=== PATIENT | male | born 1985 | race American Indian/Alaskan Native ===

== ENCOUNTER 2019-11-17 01:21 | Emergency (ER) | payer OTHER, SELFPAY ==
[2019-11-17 01:25] VITALS: BP 183/111; PULSE 100; RESP 17; TEMP 37.3; O2SAT 98; BMI 35.2
[2019-11-17] MEDS: LIDO 1%/SOD BICARB 8.4% (10ML) 10 ML SYRINGE INJ (01:30)
--- NOTE | 2019-11-17 01:38 | ED.SKABFB ---
HPI - Skin/Abscess/Foreign Bdy General Chief complaint: Skin/Abscess/Foreign Body Stated complaint: possible spider bite on arm Time Seen by Provider: 11/17/19 01:24 Source: patient Mode of arrival: Family Vehicle Limitations: no limitations History of Present Illness HPI narrative: 34-year-old male here for evaluation of an infection to his left arm. Patient states that he has noticed it over the past 3 or 4 days. His brother was here in the emergency department earlier today with a similar infection on his right lower extremity. The patient states that he has never had an abscess that his knee drained in the past. No fevers. Did squeeze it whole was able to get a small amount of material out. He thinks that it is a spider bite. Related Data Previous Rx's Medication Instructions Recorded doxycycline hyclate 100 mg PO BID #13 tab 11/17/19 Allergies Allergy/AdvReac Type Severity Reaction Status Date / Time Penicillins Allergy Verified 11/17/19 01:30 Review of Systems Constitutional Constitutional: Denies fever(s) Musculoskeletal Musculoskeletal: Denies tingling Comments: Pain over the area of the swelling when he moves his left elbow Integumentary/Breasts Comments: Redness and swelling left for Neurologic Neurologic: Denies tingling Hematologic/Lymphatic Hematologic/Lymphatic: Denies easy bleeding and Denies easy bruising Patient History Medical History (Updated 11/17/19 @ 01:43 by Markel Chung DO) Patient denies medical problems (Acute) Social History Smoking Status: Current every day smoker Smoking Status: Current every day smoker alcohol intake frequency: 0-2 drinks per day Substance Use Type: does not use Exam Initial Vital Signs Initial Vital Signs: Vital Signs Temperature 99.1 F 11/17/19 01:25 Pulse Rate 100 H 11/17/19 01:25 Respiratory Rate 17 11/17/19 01:25 Blood Pressure 183/111 H 11/17/19 01:25 Pulse Oximetry 98 11/17/19 01:25 Const General: cooperative and comfortable Skin Other: Around area of redness with swelling to his left forearm just distal to the left elbow. Extrem Other: He can flex and extend left elbow without problems Psych Appearance: grossly normal and well kempt Procedures Abscess I/D I&D #1: Site: upper extremity Side (if applicable): left Local Anesthetic: lidocaine 1% and with bicarb Amount of anesthesia used (mL): 10 Technique: incised with #11 blade Irrigation: No Packing used?: none Complications: pain Course Orders Ordered: Discontinued Medications Lidocaine/Sodium Bicarbonate (Buffered Lidocaine 10 Ml Syr) 10 ml INJ NOW ONE Stop: 11/17/19 01:27 Last Admin: 11/17/19 01:30 Dose: 10 ml Documented by: TREY Vital Signs Vital signs: Vital Signs - 8 hr 11/17/19 01:25 Temperature 99.1 F Pulse Rate 100 H Respiratory Rate 17 Blood Pressure 183/111 H Pulse Oximetry 98 MDM - Skin/Abscess/Foreign Bdy MDM Narrative Medical decision making narrative: We were able to express a small amount of purulent material from the area. There is surrounding cellulitis of will treat him with antibiotics. Was given his 1st dose here will send home with prescription. He was given care instructions and return precautions. He expressed understanding and agreement. Discharge Plan Departure Patient Disposition: Home Clinical Impression: Abscess Cellulitis Qualifiers: Site of cellulitis: extremity Site of cellulitis of extremity: upper extremity Laterality: left Qualified Code(s): L03.114 - Cellulitis of left upper limb Instructions: DI for Incision and Drainage Activity Restrictions/Additional Instructions: You were given your 1st dose of antibiotics here in the ER. A prescription was electronically transmitted to safely for you to start taking tomorrow. Expect some oozing from the area. Change the bandage is needed. You can shower like normal in use soap and water. Return to the emergency department for any new or worsening symptoms Prescriptions: New doxycycline hyclate 100 mg tablet 100 mg PO BID Qty: 13 RF: 0 Referrals: Diamond Howell DO [Primary Care Provider] -
[2019-11-17] MEDS: DOXYCYCLINE HYCLATE 100 MG TABLET PO (01:43)
[2019-11-17 01:51] VITALS: BP 145/86; PULSE 90; RESP 17; O2SAT 98
== END 2019-11-17 01:51 | disposition home or self-care (01) ==
PROVIDERS: Emergency Provider Emergency Medicine; PCP Family Medicine
DX: L02.414 Cutaneous abscess of left upper limb (principal); L03.114 Cellulitis of left upper limb
CPT/HCPCS: 10060; 99283

== ENCOUNTER 2023-04-20 19:39 | Emergency (ER) | payer SELFPAY ==
[2023-04-20] VITALS (29 sets, daily range): BP systolic 142–192; BP diastolic 77–93; PULSE 84–102; RESP 16–24; TEMP 36.9; O2SAT 93–100; BMI 40.3
--- NOTE | 2023-04-20 19:43 | ED_ITS ---
HPI - General Adult General Chief complaint: Allergic Reaction Stated complaint: Anaphalaxis / Bee Time Seen by Provider: 04/20/23 19:42 History of Present Illness HPI narrative: 38M daily smoker without chronic medical history presents by EMS for evaluation of anaphylactic shock. The patient had been in his normal state of health and was stung on the dorsum of his left hand which immediately caused pain some swelling and redness, he states that he saw stinger which he was able to remove and soon thereafter developed significant redness and itching with trouble breathing and his throat started closing. EMS arrived and found him in significant respiratory distress, he was given an initial dose of epinephrine 0.3 and an IV was placed, he was briefly improved but then relatively quickly had a significant decompensation, blood pressure dropped into the 70s and he became profoundly short of breath again, he was subsequently given 2 more doses of epinephrine 0.5 mg IM as well as 50 mg of Benadryl through the IV in the ambulance [place]. He is feeling significant improvement on arrival with stable blood pressure, he is able to breathe without difficulty and states his throat is feeling much better though still scratchy. He denies any history of anaphylaxis and was in fact stung a few days ago with minimal if any symptoms. Related Data Previous Rx's Medication Instructions Recorded doxycycline hyclate 100 mg tablet 100 mg PO BID #13 tabs 11/17/19 epinephrine 0.3 mg/0.3 mL 0.3 mg (0.3 mL) IM Q5-15M PRN 04/21/23 injection, auto-injector (EpiPen anaphylaxis #2 ea 2-Adan) methylprednisolone 4 mg tablets in See Rx Instructions PO .COMPLEX 04/21/23 a dose pack (Medrol (Adan)) #21 ea Allergies Allergy/AdvReac Type Severity Reaction Status Date / Time Penicillins Allergy Verified 11/17/19 01:30 Review of Systems Review of Systems Narrative: GENERAL: See HPI HEENT: See HPI RESPIRATORY: See HPI CARDIOVASCULAR: Denies chest pain, palpitations, orthopnea, edema, GASTROINTESTINAL: Denies nausea, vomiting, abdominal pain, diarrhea, constipation, melena. : Denies dysuria, frequency, incontinence, hematuria, urinary retention. MUSCULOSKELETAL: denies weakness, joint pain, or bony pain SKIN: Denies rash, skin lesions, or other NEUROLOGIC: Denies weakness, headache, numbness, change in speech, confusion, seizures, incoordination. PSYCHIATRIC: No concerning psychosocial issues. 12 point review of systems is negative except for those stated above Patient History Medical History Patient denies medical problems Social History Smoking Status: Current every day smoker Smoking Status: Current every day smoker alcohol intake frequency: 0-2 drinks per day Substance Use Type: does not use Exam Narrative Exam Narrative: GENERAL: [38] year old patient appears stated age. Well-developed patient, in mild distress. HEAD: Atraumatic. Normocephalic. EYES: Pupils equal round and reactive. Extraocular motions intact. No scleral icterus. No injection or drainage. ENT: Nose without bleeding, purulent drainage. Throat without erythema, tonsillar hypertrophy or exudate. Airway patent. Slightly gravelly voice, airway controlled, controlling secretions NECK: Trachea midline. Non tender CARDIOVASCULAR: Regular rate and rhythm without murmurs, gallops, or rubs. RESPIRATORY: Clear to auscultation. Breath sounds equal bilaterally. No wheezes, rales, or rhonchi. GASTROINTESTINAL: Abdomen soft, non-tender, nondistended. EXTREMITIES: No edema or joint tenderness. BACK: Nontender without deformity or crepitance. No flank tenderness. NEURO: AOx3. SKIN: Some hives of his upper chest with erythema of anterior chest and upper extremities Initial Vital Signs Initial Vital Signs: Vital Signs Temperature 98.5 F 04/20/23 19:40 Pulse Rate 102 H 04/20/23 19:40 Respiratory Rate 20 04/20/23 19:40 Blood Pressure 151/85 H 04/20/23 19:40 Pulse Oximetry 100 04/20/23 19:40 Oxygen Delivery Method Room Air 04/20/23 19:40 Course Orders Ordered: Famotidine (Famotidine 20 Mg/2 Ml Vial) 20 mg IV NOW CHONG Last Admin: 04/20/23 19:52 Dose: 20 mg Documented By: DONITA Discontinued Medications Dexamethasone (Dexamethasone 10 Mg/Ml Vial) 10 mg IV NOW ONE Stop: 04/20/23 19:43 Last Admin: 04/20/23 19:54 Dose: 10 mg Documented By: DONITA Sodium Chloride (Normal Saline 0.9%) 1,000 mls @ 1,000 mls/hr IV BOLUS ONE Stop: 04/20/23 20:41 Last Infusion: 04/20/23 21:25 Dose: 0 mls/hr Documented By: Admin: 04/20/23 19:49 Dose: 1,000 mls/hr Documented By: DONITA Reevaluation(s) Reevaluation #1: Patient with complete resolution of symptoms after above-stated therapies Vital Signs Vital signs: Vital Signs - 8 hr 04/20/23 19:40 04/20/23 19:45 04/20/23 19:45 Temperature 98.5 F Pulse Rate 102 H 100 H Respiratory Rate 20 17 Blood Pressure 151/85 H 163/92 H Pulse Oximetry 100 94 Oxygen Delivery Method Room Air Room Air 04/20/23 19:50 04/20/23 19:50 04/20/23 19:56 Temperature Pulse Rate 96 H Respiratory Rate 24 Blood Pressure 153/85 H 142/78 H Pulse Oximetry 98 Oxygen Delivery Method Room Air 04/20/23 19:56 04/20/23 20:00 04/20/23 20:00 Temperature Pulse Rate 85 84 Respiratory Rate 22 21 Blood Pressure 148/83 H Pulse Oximetry 97 97 Oxygen Delivery Method Room Air Room Air 04/20/23 20:05 04/20/23 20:05 04/20/23 20:10 Temperature Pulse Rate 94 H Respiratory Rate 24 Blood Pressure 152/83 H 161/87 H Pulse Oximetry 98 Oxygen Delivery Method Room Air 04/20/23 20:10 04/20/23 20:15 04/20/23 20:15 Temperature Pulse Rate 96 H 97 H Respiratory Rate 22 24 Blood Pressure 175/93 H Pulse Oximetry 97 96 Oxygen Delivery Method Room Air 04/20/23 20:20 04/20/23 20:20 04/20/23 20:25 Temperature Pulse Rate 94 H Respiratory Rate 20 Blood Pressure 182/91 H 181/87 H Pulse Oximetry 97 Oxygen Delivery Method Room Air 04/20/23 20:25 04/20/23 20:30 04/20/23 20:30 Temperature Pulse Rate 94 H 96 H Respiratory Rate 21 20 Blood Pressure 183/87 H Pulse Oximetry 96 95 Oxygen Delivery Method Room Air Room Air 04/20/23 20:35 04/20/23 20:35 04/20/23 20:40 Temperature Pulse Rate 98 H Respiratory Rate 19 Blood Pressure 164/84 H 167/85 H Pulse Oximetry 95 Oxygen Delivery Method Room Air 04/20/23 20:40 04/20/23 20:45 04/20/23 20:45 Temperature Pulse Rate 98 H 102 H Respiratory Rate 19 23 Blood Pressure 174/87 H Pulse Oximetry 96 96 Oxygen Delivery Method Room Air Room Air 04/20/23 20:50 04/20/23 20:50 04/20/23 20:55 Temperature Pulse Rate 90 Respiratory Rate 22 Blood Pressure 143/83 H 148/86 H Pulse Oximetry 96 Oxygen Delivery Method Room Air 04/20/23 20:55 04/20/23 21:00 04/20/23 21:00 Temperature Pulse Rate 95 H 98 H Respiratory Rate 18 19 Blood Pressure 157/90 H Pulse Oximetry 96 97 Oxygen Delivery Method Room Air 04/20/23 21:05 04/20/23 21:05 04/20/23 21:10 Temperature Pulse Rate 97 H Respiratory Rate 19 Blood Pressure 161/93 H 144/85 H Pulse Oximetry 97 Oxygen Delivery Method Room Air 04/20/23 21:10 04/20/23 21:15 04/20/23 21:15 Temperature Pulse Rate 97 H 99 H Respiratory Rate 18 20 Blood Pressure 181/92 H Pulse Oximetry 95 97 Oxygen Delivery Method Room Air 04/20/23 21:20 04/20/23 21:20 04/20/23 21:22 Temperature Pulse Rate 98 H 101 H Respiratory Rate 18 21 Blood Pressure 192/89 H Pulse Oximetry 95 96 Oxygen Delivery Method Room Air Room Air 04/20/23 21:22 04/20/23 21:30 04/20/23 21:40 Temperature Pulse Rate 97 H 95 H Respiratory Rate 17 19 Blood Pressure 173/77 H Pulse Oximetry 93 Oxygen Delivery Method 04/20/23 21:40 04/20/23 22:00 04/20/23 22:00 Temperature Pulse Rate 97 H Respiratory Rate 16 Blood Pressure 172/87 H 174/92 H Pulse Oximetry Oxygen Delivery Method 04/20/23 22:30 04/20/23 22:34 04/20/23 22:34 Temperature Pulse Rate 97 H 96 H Respiratory Rate 21 21 Blood Pressure 179/88 H Pulse Oximetry 96 97 Oxygen Delivery Method Room Air Room Air 04/20/23 23:00 04/20/23 23:00 04/20/23 23:30 Temperature Pulse Rate 95 H Respiratory Rate 18 Blood Pressure 161/88 H 164/84 H Pulse Oximetry 94 Oxygen Delivery Method Room Air 04/20/23 23:30 04/21/23 00:00 04/21/23 00:00 Temperature Pulse Rate 94 H 85 Respiratory Rate 16 Blood Pressure 162/91 H Pulse Oximetry 94 94 Oxygen Delivery Method Room Air 04/21/23 00:30 04/21/23 00:30 Temperature Pulse Rate 88 Respiratory Rate 17 Blood Pressure 151/88 H Pulse Oximetry 95 Oxygen Delivery Method Room Air Medical Decision Making MDM Narrative Medical decision making narrative: [38] year old patient presents with anaphylactic shock from bee sting Prior Charts reviewed in our EMR Primary Historian: patient Treatments: See above Response to Therapy: Complete resolution symptoms Patient's symptoms improved over duration of stay with above-stated therapies. Observed for 6 hours with no return of symptoms Findings and discharge diagnosis discussed with patient/family followed by verbalization of understanding Return precautions discussed with patient/family whom verbalize understanding of diagnosis and plan Discharge Plan Departure Patient Disposition: Home Clinical Impression: Anaphylactic shock Instructions: DI for Anaphylaxis Activity Restrictions/Additional Instructions: *You have been diagnosed with [allergic reaction] *What to do: *Please continue to take your regular medications as directed. [x ] New medication prescriptions sent to your pharmacy: [ [facility]] [ ] New medication written as a paper prescription [ ] No new medications given *Please consider the routine use of over the counter antihistamines over the next few days 1. H1 blockers: Benadryl (Diphenhydramine), Zyrtec (Cetirizine), Marce (Fexofenadine) or Claritin (Loratadine) along with, 2. H2 blockers: Famotidine or Cimetidine *If you can please avoid what triggered your reaction today *Please follow up with your primary care provider in 2-3 days, call for an appointment. Let them know you were seen in the Emergency Department and that we ask that you be seen in follow up. We will electronically transmit a record of today's note if your PCP is in our system *If you do not have a primary care provider please contact the [facility] Resource line at [phone]. They will ask some questions about your medical history and help get you set up with a doctor in the community. *Return to Emergency Department if you should have any new, worsening or concerning symptoms, such as swelling of tongue, throat, trouble breathing, or other concerning symptoms Prescriptions: New epinephrine [EpiPen 2-Adan] 0.3 mg/0.3 mL auto-injector 0.3 mg IM Q5-15M PRN (Reason: anaphylaxis) Qty: 2 0RF Rx Instructions: do not exceed 3 doses per episode methylprednisolone [Medrol (Adan)] 4 mg tablets,dose pack See Rx Instructions .ROUTE .COMPLEX Qty: 21 0RF Rx Instructions: orally per package directions No Action doxycycline hyclate 100 mg tablet 100 mg PO BID Qty: 13 0RF Referrals: Diamond Howell DO [Primary Care Provider] - Stand Alone Forms: Patient Portal/API
[2023-04-20] MEDS: SODIUM CHLORIDE 0.9% 1,000 ML 1000 ML IV (19:49)
[2023-04-20] MEDS: FAMOTIDINE 20 MG/2 ML VIAL IV (19:52)
[2023-04-20] MEDS: DEXAMETHASONE 10 MG/ML VIAL IV (19:54)
[2023-04-21] VITALS: BP 162/91; PULSE 85; O2SAT 94
[2023-04-21 00:30] VITALS: BP 151/88; PULSE 88; RESP 17; O2SAT 95
[2023-04-21 01:00] VITALS: BP 140/67; PULSE 88; RESP 17; O2SAT 96
[2023-04-21 01:30] VITALS: BP 155/77; PULSE 83; RESP 17; O2SAT 95
== END 2023-04-21 02:00 | disposition home or self-care (01) ==
PROVIDERS: Emergency Provider Emergency Medicine; PCP Family Medicine
DX: T63.441A Toxic effect of venom of bees, accidental (unintentional), initial encounter (principal); T78.2XXA Anaphylactic shock, unspecified, initial encounter
CPT/HCPCS: 96361; 96374; 96375; 99283; 99284; J1100

== ENCOUNTER 2024-06-22 11:24 | Inpatient (IN) | payer OTHER, MEDICAID, SELFPAY ==
[2024-06-22] VITALS (9 sets, daily range): BP systolic 121–146; BP diastolic 67–86; PULSE 97–106; RESP 18–25; TEMP 36.7–37.2; O2SAT 93–98; BMI 34.2; BMI 35.2
--- NOTE | 2024-06-22 11:46 | DI.RAD.S_ITS ---
PROCEDURE: XR CHEST 1V INDICATIONS: suspected sepsis TECHNIQUE: One view of the chest was acquired. COMPARISON: None. FINDINGS: Surgical changes and devices: None. Lungs and pleura: Lungs are clear. No pleural effusions or pneumothorax. Mediastinum: Mediastinal contours appear normal. Heart size is normal. Bones and chest wall: No suspicious bony lesions. Overlying soft tissues appear unremarkable. IMPRESSION: No acute cardiopulmonary abnormality is seen. Dictated by: Bertha Garcia MD, PhD on 06/22/2024 at 12:13 Approved by: Bertha Garcia MD, PhD on 06/22/2024 at 12:14
--- NOTE | 2024-06-22 11:58 | EKG_ITS ---
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
--- NOTE | 2024-06-22 12:11 | ED_ITS ---
HPI - Wound/Laceration General Chief Complaint: Wound/Laceration Stated Complaint: L arm infection, swelling Time Seen by Provider: 06/22/24 11:59 Source: patient Mode of arrival: Ambulatory Limitations: no limitations History of Present Illness HPI narrative: Patient is a 39-year-old male who is here for an evaluation of an infection to his left elbow. He states that a couple days ago he noticed that there was a ?palumbo? over the area. He stated that his girlfriend tried to pop it. Since that time he was had increase in swelling and redness and drainage to the area. No fevers. Swelling that is now extending down to his hand. He has had infections like this in the past that have needed drainage. Related Data Previous Rx's Medication Instructions Recorded doxycycline hyclate 100 mg tablet 100 mg PO BID #13 tabs 11/17/19 epinephrine 0.3 mg/0.3 mL 0.3 mg (0.3 mL) IM Q5-15M PRN 04/21/23 injection, auto-injector (EpiPen anaphylaxis #2 ea 2-Adan) methylprednisolone 4 mg tablets in See Rx Instructions PO .COMPLEX 04/21/23 a dose pack (Medrol (Adan)) #21 ea Allergies Allergy/AdvReac Type Severity Reaction Status Date / Time Penicillins Allergy Verified 11/17/19 01:30 Review of Systems Review of Systems ROS Unobtainable: All systems reviewed & are unremarkable except as noted in HPI and below Patient History Medical History Patient denies medical problems Social History Smoking Status: Current every day smoker Smoking Status: Current every day smoker tobacco type: vaping alcohol intake frequency: 0-2 drinks per day Substance Use Type: methamphetamine Exam Initial Vital Signs Initial Vital Signs: Vital Signs Temperature 99.0 F 06/22/24 11:40 Pulse Rate 105 H 06/22/24 11:40 Respiratory Rate 20 06/22/24 11:40 Blood Pressure 146/86 H 06/22/24 11:40 Pulse Oximetry 97 06/22/24 11:40 Oxygen Delivery Method Room Air 06/22/24 11:40 HENMT Head: normal to inspection and normocephalic Skin Other: Patient with an extensive area of cellulitis and abscess to the lateral aspect of his left arm at the area of the elbow. There is area of fluctuance and induration in this area and drainage. Neuro Sensory Exam: no sensory deficits noted Extrem Other: Swelling to the left elbow and left forearm. Procedures Abscess I/D I&D #1: Site: upper extremity Side (if applicable): left Local Anesthetic: lidocaine 1% Amount of anesthesia used (mL): 5 Technique: incised with #11 blade Irrigation: No Packing used?: none Complications: pain Course Orders Ordered: ED Orders 06/22/24 11:42 Wound Culture and Gram Stain Stat 06/22/24 11:45 Consult to [employer]AX PATTERN ASSEMBLER - Roving Can Tender Stat 06/22/24 11:46 XR chest 1V Stat EKG-12 Lead Stat RT Consult Eval and Treat NOW 06/22/24 12:10 Complete Blood Count AUTO DIFF Stat Comprehensive Metabolic Panel Stat Lactate (Lactic Acid) Stat Lipase Stat PTT Partial Thromboplastin Dave Stat Procalcitonin Stat Prothrombin Time INR Stat 06/22/24 12:30 Blood Culture Stat Vancomycin HCl (Vancomycin) 1,000 mg in 200 mls @ 200 mls/hr IV NOW ONE Stop: 06/22/24 13:14 Ondansetron HCl (Ondansetron 4 Mg/2 Ml Inj) 4 mg IV NOW PRN PRN Reason: Nausea And Vomiting Discontinued Medications Ceftriaxone Sodium 1,000 mg/ (Sodium Chloride) 100 mls @ 200 mls/hr IV NOW ONE Stop: 06/22/24 12:16 Last Admin: 06/22/24 12:36 Dose: 200 mls/hr Documented By: AMBER Vital Signs Vital signs: Vital Signs - 8 hr 06/22/24 11:40 06/22/24 11:50 06/22/24 11:54 Temperature 99.0 F Pulse Rate 105 H 100 H Respiratory Rate 20 Blood Pressure 146/86 H 132/69 Pulse Oximetry 97 Oxygen Delivery Method Room Air 06/22/24 11:54 06/22/24 12:00 06/22/24 12:00 Temperature Pulse Rate 100 H 100 H Respiratory Rate 20 24 Blood Pressure 127/67 Pulse Oximetry 98 96 Oxygen Delivery Method MDM - Wound/Laceration Lab Data Attestation: I reviewed the patient's lab results. 06/22/24 12:10 06/22/24 12:10 Labs: Lab Results 06/22/24 Range/Units 12:10 WBC 27.0 H (4.5-11.0) X10^3/uL RBC 4.73 (4.5-5.9) X10^6/uL Hgb 14.2 (13.5-17.5) g/dL Hct 41.6 (41-53) % MCV 88.0 (80-100) fL MCH 30.0 (26-34) PG MCHC 34.0 (30-36) % RDW 13.5 (11.6-14.8) % Plt Count 547 H (150-400) X10^3/uL Neut % (Auto) Not Reportable Lymph % (Auto) Not Reportable [place] % (Auto) Not Reportable Eos % (Auto) Not Reportable Baso % (Auto) Not Reportable Lymph # (Auto) Not Reportable [place] # (Auto) Not Reportable Baso # (Auto) Not Reportable PT 12.6 H (9.4-12.5) SECONDS INR 1.1 (0.9-1.3) APTT 32 (25.1-36.5) SECONDS Sodium 136 L (137-145) mmol/L Potassium 4.3 (3.4-5.1) mmol/L Chloride 100 (98-107) mmol/L Carbon Dioxide 30 (22-32) mmol/L BUN 11 (9-20) mg/dL Creatinine 0.93 (0.66-1.25) mg/dL Estimated GFR > 60 (>60) mL/min BUN/Creatinine Ratio 11.8 (6-22) Glucose 105 H (70-100) mg/dL Lactate 0.7 (0.7-2.1) mmol/L Calcium 9.0 (8.4-10.2) mg/dL Total Bilirubin 0.6 (0.2-1.3) mg/dL AST 23 (17-59) IU/L ALT 26 (<50) IU/L Alkaline Phosphatase 44 (38-126) U/L Total Protein 8.2 (6.3-8.2) g/dL Albumin 4.3 (3.5-5.0) g/dL Globulin 3.9 (1.7-4.1) g/dL Albumin/Globulin Ratio 1.1 (1.0-2.8) Lipase 80 (23-300) U/L Imaging Data Chest x-ray: Radiologist's Impression: PROCEDURE: XR CHEST 1V INDICATIONS: suspected sepsis TECHNIQUE: One view of the chest was acquired. COMPARISON: None. FINDINGS: Surgical changes and devices: None. Lungs and pleura: Lungs are clear. No pleural effusions or pneumothorax. Mediastinum: Mediastinal contours appear normal. Heart size is normal. Bones and chest wall: No suspicious bony lesions. Overlying soft tissues appear unremarkable. IMPRESSION: No acute cardiopulmonary abnormality is seen. ECG Data Attestation: I personally reviewed and interpreted this ECG as follows: Interpretation: Sinus rhythm Ventricular rate of 96 Normal axis Normal QRS LVH No ST T wave changes MDM Narrative Medical decision making narrative: Swelling and redness and abscess to the left arm. The abscess was drained here in the ER however he has a significant leukocytosis, tachycardic and tachypneic. Blood cultures were obtained. Wound culture obtained. He was given Rocephin and vancomycin. I do feel given his presentation that he would likely fail outpatient oral antibiotics. Recommended admission to the hospital. Discussed the case with Dr. Fontana hospitalist on-call who will admit. Discussed the need for admission with the patient who expressed understanding and agreement as well. Discharge Plan Departure Patient Disposition: Admitted As Inpatient Clinical Impression: Abscess, Cellulitis Admit Date/Time: 06/22/24 12:52
[2024-06-22 12:23] LABS: Add Manual Diff / Slide Review YES; Hematocrit 41.6 % (41-53); Hemoglobin 14.2 g/dL (13.5-17.5); Platelet Count 547 X10^3/uL (150-400); Red Blood Cell Count 4.73 X10^6/uL (4.5-5.9); Red Cell Distribution Width 13.5 % (11.6-14.8)
[2024-06-22 12:29] LABS: INR 1.1 (0.9-1.3); Prothrombin Time 12.6 SECONDS (9.4-12.5)
[2024-06-22 12:31] LABS: PTT Partial Thromboplastin Tim 32 SECONDS (25.1-36.5)
[2024-06-22 12:33] LABS: Lactate (Lactic Acid) 0.7 mmol/L (0.7-2.1)
[2024-06-22 12:34] LABS: Alanine Aminotransferase 26 IU/L (<50); Albumin 4.3 g/dL (3.5-5.0); Albumin Globulin Ratio 1.1 (1.0-2.8); Alkaline Phosphatase 44 U/L (38-126); Aspartate Aminotransferase 23 IU/L (17-59); BUN Creatinine Ratio 11.8 (6-22); Bilirubin Total 0.6 mg/dL (0.2-1.3); Blood Urea Nitrogen 11 mg/dL (9-20); Carbon Dioxide 30 mmol/L (22-32); Chloride 100 mmol/L (98-107); Estimated Glomerular Filt Rate > 60 mL/min (>60); Globulin 3.9 g/dL (1.7-4.1); Glucose 105 mg/dL (70-100); HEMOLYSIS < 15 (0-50); Lipase 80 U/L (23-300); Potassium 4.3 mmol/L (3.4-5.1); Sodium 136 mmol/L (137-145); Total Protein 8.2 g/dL (6.3-8.2)
[2024-06-22] MEDS: cefTRIAXone 1,000 MG in SODIUM CHLORIDE 0.9% 100 ML 200 MG IV (12:36)
[2024-06-22 12:59] LABS: Neutrophils Absolute Manual 22140 /uL (3000-5900); Platelet Estimate Increased on smear; RBC Morphology Normal Morphology; Total Cells Counted 100
--- NOTE | 2024-06-22 13:10 | P.HP_ITS ---
History of Present Illness History of Present Illness Chief complaint: L arm infection, swelling Narrative: The patient was a 39-year-old male who presented with left elbow swelling and redness. This developed as a palumbo or pimple which is girlfriend tried to help him pump several days ago. He was since developed progressive redness, and swelling of the elbow and forearm. He presented to the emergency department and was I and D with cultures sent. The patient has significant redness and swelling of his arm from just above the elbow to senior living down the forearm. He denies any difficulty moving his hand or numbness. No fevers, or chills. He was been fatigued. He was otherwise healthy and a BMI of 35. It was a significant leukocytosis with a WBC of 27. T99.0, HR 105. [facility] Medical History Patient denies medical problems Social History household members: spouse and family Smoking Status: Current every day smoker alcohol intake: never Meds Home Medications and Allergies Home Medications Medication Instructions Recorded Confirmed Type epinephrine 0.3 mg/0.3 mL 0.3 mg (0.3 mL) IM Q5-15M PRN 04/21/23 06/22/24 Rx injection, auto-injector (EpiPen anaphylaxis #2 ea 2-Adan) Allergies Allergy/AdvReac Type Severity Reaction Status Date / Time bee venom protein (honey bee) Allergy Severe Numbness Verified 06/22/24 14:15 Penicillins Allergy Verified 11/17/19 01:30 Review of Systems Review of Systems Narrative: All else reviewed and otherwise unremarkable except as noted in the history and physical. Exam Vital Signs (past 8 hours): - 06/22/24 11:40 06/22/24 11:50 06/22/24 11:54 Temperature 99.0 F Pulse Rate 105 H 100 H Respiratory Rate 20 Blood Pressure 146/86 H 132/69 Pulse Oximetry 97 Oxygen Delivery Method Room Air 06/22/24 11:54 06/22/24 12:00 06/22/24 12:00 Temperature Pulse Rate 100 H 100 H Respiratory Rate 20 24 Blood Pressure 127/67 Pulse Oximetry 98 96 Oxygen Delivery Method Oxygen Delivery Method Room Air Narrative Exam Narrative: NAD, alert and oriented, fluent speech, calm. Normocephalic skull, EOMI, anicteric sclera, symmetric pupils. Oropharynx unremarkable, no droop. Neck supple, midline trachea, no adenopathy. Lungs clear, normal rate and effort. Heart regular, no murmur gallop or rub. Abdomen is soft, non distended and non tender. Extremities are free of edema. Accept the left arm is swollen and red at the elbow down senior living through the forearm. He was normal range of motion of the elbow. He did have a 90 year the posterior aspect of the elbow and this is dressed. Skin is free of rash or lesions. Joints are not swollen or deformed. Judgment appears to be normal. Objective ECG Impression: Minimal voltage criteria for LVH, may be normal variant ( R in aVL ) Imaging Chest x-ray: Radiologist's impression: No acute cardiopulmonary abnormality is seen. Labs 06/22/24 12:10 06/22/24 12:10 Labs: Laboratory Results - last 24 hr 06/22/24 12:10 WBC 27.0 H RBC 4.73 Hgb 14.2 Hct 41.6 MCV 88.0 MCH 30.0 MCHC 34.0 RDW 13.5 Plt Count 547 H Neut % (Auto) Not Reportable Lymph % (Auto) Not Reportable [place] % (Auto) Not Reportable Eos % (Auto) Not Reportable Baso % (Auto) Not Reportable Lymph # (Auto) Not Reportable [place] # (Auto) Not Reportable Baso # (Auto) Not Reportable Total Counted 100 Seg Neutrophils % 81.0 H Band Neutrophils % 1.0 L Lymphocytes % (Manual) 7.0 L Monocytes % (Manual) 8.0 Eosinophils % (Manual) 2.0 Myelocytes % 1.0 H Neutrophils # (Manual) 57112 H Platelet Estimate Increased on smear RBC Morphology Normal morphology PT 12.6 H INR 1.1 APTT 32 Sodium 136 L Potassium 4.3 Chloride 100 Carbon Dioxide 30 BUN 11 Creatinine 0.93 Estimated GFR > 60 BUN/Creatinine Ratio 11.8 Glucose 105 H Lactate 0.7 Calcium 9.0 Total Bilirubin 0.6 AST 23 ALT 26 Alkaline Phosphatase 44 Total Protein 8.2 Albumin 4.3 Globulin 3.9 Albumin/Globulin Ratio 1.1 Lipase 80 Procalcitonin 0.060 Assessment & Plan Assessment & Plan narrative: 1. Left Elbow cellulitis and abscess, present on admission and active. 2. Significant leukocytosis, present on admission and active. 3. Obesity class 2 with a BMI of 35.3, present on admission and active. Plan: - Empiric antibiotics with ceftriaxone and vancomycin. - Follow cultures HECTOR is 06/24, anticipate a 2 midnight stay given significant degree of cellulitis. Inpatient status as supported. Full resuscitation. Time-Based Coding :: 35 min spent with patient and on the chart (including review of chart, obtaining history, exam, reviewing outside data, placing orders, documenting exam and treatment plan, and counseling patient) on 06/22. Quality MIPS - Admit I confirm the patient?s Advance Care Plan is present, Code status is documented, Surrogate decision maker is in patient?s record [If Yes, STOP here]: Yes MIPS - Meds 'Current medications' to include all prescriptions, [id number] products, herbals, cannabis/cannabidiol products, and vitamin/mineral/dietary (nutritional) supplements. I have utilized all available resources to obtain, update, or review the patient?s current medications. [If Yes, STOP here]: Yes
[2024-06-22] MEDS: VANCOMYCIN 1,000 MG/200 ML PIGGYBACK 200 MG IV (13:41)
[2024-06-22] MEDS: ACETAMINOPHEN 325 MG TABLET 650 MG PO (13:42)
--- NOTE | 2024-06-22 14:06 | CM.DANOTE ---
DCP Assessment Note: Pt is a 39yo male, resident of [place], is admitted for left arm infection and abscess. Pt has a trailer on [address] which he tries to stay away from due to heavy drug use in the area; pt has been staying in his vehicle in [place] with his fiance in an attempt to be away from that environment. Patient has children who stay with their grandparents during the week due to school. Pt's Primary Care Provider is Dr. Diamond Howell DO and insurance is [employer] and Medicaid. Reviewed chart and team rounds for pt's medical status and initial discharge needs. DCP met w/patient at bedside; introduced self and role. Patient was found in bed, alert and oriented, cooperative with assessment. Pt confirmed living situation and good support in [facility]. Patient was tearful when describing current living arrangement. Patient states he [facility] and even completed TAMIKO treatment at [facility] after [facility] of [place] [facility]. Patient is hopeful for a referral to a housing support program for himself and his family so he can stabilize and continue with plans of abstaining from methamphetamine use. Pt expressed preference in discharging with family when medically stable. Pt has no prior hx of SNF or home health. Plan: Pt to be admitted to acute care floor for IV abx and treatment of infection. Anticipating discharge to previous living conditions with housing support referral when medically cleared. CM team will follow closely for coordination of discharge plans. DEVON Williamson Discharge Planning/Care Management CM Discharge Assessment Start: 06/22/24 14:01 Freq: Status: Active Protocol: Document 06/22/24 14:02 (Rec: 06/22/24 14:06 [id number]) Discharge Planning Assessment Assigned Network And Threat Support Specialist LATONYA Gomes/Assigned Designee Name China Boo Contact Information [phone] Advance Directives? No History Provided By Patient,Medical Record Has Patient been admitted in last 30 No days? Prior Living Arrangements Homeless Comment Patient is currently living in their vehicle in [place]. Pt explained they have a trailer on [address] but has been trying to avoid that area due to heavy drug use. Household Members spouse,family Comment Patient's children live at pt' s in-law's house during the week as they still go to school in [place] [employer]. Type of transporation used prior to Drives own vehicle admit Independent with ADL's Yes Is patient alert and oriented? Yes Caregiver for Another Yes: Children, also has decreased mobilization due to hip fx Comment Hoping for assistance with being admitted at [facility] or other housing support program for himself and family. Barriers to Discharge No Discharge Plan Home Referrals Initiated Other Additional Comment [facility] Review Status In Process Please Provide Date Initial DC 06/22/24 Assessment Was Performed Next Review Type Continued Stay Review
--- NOTE | 2024-06-22 14:20 | PC.NURSE ---
Pt to room 216 via w/c by PROCESS AREA SUPERVISOR. Pt is awake, alert, and oriented x 3. Denies nausea, or shortness of breath. States pain to his left arm is tolerable-provided Tylenol for Pt comfort and elevated elbow on 2 pillows. IV vanco infusing. Pt declined to wear scd's at this time (states perhaps at night time), declined Heparin injection. Pt given snacks to eat. Pt oriented to room, call light, bed controls, and tv controls. Urinal placed next to void as needed. Requested Pt call for assistance as needed and to not get up without assistance while hooked to IV pump or feels unsteady on his feet. Pt denies falls and is steady on his feet.
[2024-06-22] MEDS: OXYCODONE IR 5 MG TABLET PO (20:31)
[2024-06-22] MEDS: VANCOMYCIN 1,500 MG/300 ML PIGGYBACK 200 MG IV (20:31)
[2024-06-23 03:19] LABS: Acinetobacter calcoa-baumannii Not Detected (Not Detect); Bacteroides fragilis Not Detected (Not Detect); Candida albicans Not Detected (Not Detect); Candida auris Not Detected (Not Detect); Candida glabrata Not Detected (Not Detect); Candida krusei Not Detected (Not Detect); Candida parapsilosis Not Detected (Not Detect); Candida tropicalis Not Detected (Not Detect); Cryptococcus neoformans/gatti Not Detected (Not Detect); Enterobacter cloacae complex Not Detected (Not Detect); Enterobacterales Not Detected (Not Detect); Enterococcus faecalis Not Detected (Not Detect); Enterococcus faecium Not Detected (Not Detect); Haemophilus influenzae Not Detected (Not Detect); Klebsiella aerogenes Not Detected (Not Detect); Listeria monocytogenes Not Detected (Not Detect); Neisseria meningitidis Not Detected (Not Detect); Proteus species Not Detected (Not Detect); Pseudomonas aeruginosa Not Detected (Not Detect); Salmonella species Not Detected (Not Detect); Serratia marcescens Not Detected (Not Detect); Staphylococcus epidermidis Not Detected (Not Detect); Staphylococcus lugdunensis Not Detected (Not Detect); Staphylococcus species Detected (Not Detect); Stenotrophomonas maltophilia Not Detected (Not Detect); Streptococcus agalactiae (Gr B Not Detected (Not Detect); Streptococcus pneumonia Not Detected (Not Detect); Streptococcus pyogenes (Gr A) Not Detected (Not Detect); Streptococcus species Not Detected (Not Detect); mecA/C and MREJ (MRSA) Resista Not Detected (Not Detect)
[2024-06-23] MEDS: OXYCODONE IR 5 MG TABLET PO ×2 (05:00→08:49)
[2024-06-23 05:35] LABS: Add Manual Diff / Slide Review NO; Basophils Absolute Auto 200 /uL (0-100); Basophils Percent Auto 0.7 % (0-2); Eosinophils Absolute Auto 800 /uL (0-450); Eosinophils Percent Auto 3.5 % (2-4); Hematocrit 40.2 % (41-53); Hemoglobin 13.5 g/dL (13.5-17.5); Lymphocytes Absolute Auto 1900 /uL (1100-4500); Lymphocytes Percent Auto 9.1 % (25-40); Mean Corpuscular HGB Conc 33.6 % (30-36); Mean Corpuscular Hemoglobin 29.6 PG (26-34); Monocytes Absolute Auto 2000 /uL (0-900); Monocytes Percent Auto 9.4 % (3-14); Neutrophils Absolute Auto 16400 /uL (1500-7000); Neutrophils Percent Auto 77.3 % (50-75); Platelet Count 515 X10^3/uL (150-400); Red Blood Cell Count 4.58 X10^6/uL (4.5-5.9); Red Cell Distribution Width 13.8 % (11.6-14.8); White Blood Cell Count 21.2 X10^3/uL (4.5-11.0)
[2024-06-23 06:00] VITALS: BP 121/83; PULSE 76; RESP 18; TEMP 36.7; O2SAT 95
--- NOTE | 2024-06-23 07:23 | PC.NURSE ---
Pt showered/changed this shift. Dressing changes @ 1200/0500. Dressed w/xeroform, gauze/medipore.
[2024-06-23 08:48] VITALS: BP 138/84; PULSE 84; RESP 14; TEMP 36.8; O2SAT 97
[2024-06-23] MEDS: VANCOMYCIN 1,500 MG/300 ML PIGGYBACK 200 MG IV ×2 (08:49→20:44)
[2024-06-23] MEDS: ACETAMINOPHEN 325 MG TABLET 650 MG PO ×2 (08:50→20:44)
[2024-06-23] MEDS: cefTRIAXone 1,000 MG in SODIUM CHLORIDE 0.9% 100 ML 200 MG IV (11:54)
[2024-06-23 12:00] VITALS: BP 125/71; PULSE 88; RESP 14; TEMP 36.4; O2SAT 98
--- NOTE | 2024-06-23 13:06 | DI.ECHO.S_ITS ---
[place] +---------+ Hospital : : [address] : : [place] : : [id number] : : Phone: [phone] Echocardiogram Report + + :Name: BETO BRUNO Study Date: 06/24/2024 Height: 68 in : :[facility] ReadingLocation: Weight: 232 lb : : Gender: Male BSA: 2.2 m2 : :: 1985 Age: 39 yrs BP: 143/90 mmHg: :Reason For Study: SEPSIS : :Ordering Physician: CARTER, : :KEATON Performed By: Nuno Willoughby : :Referring: KEATON MACHADO : + + Interpretation Summary The left ventricle is normal in size. Left ventricular systolic function is normal. The ejection fraction is estimated to be 55-60%. There are no obvious focal wall motion abnormalities noted but poor endocardial definition reduces the sensitivity for the detection of such. Diastolic parameters suggest a relaxation abnormality of the left ventricle, consistent with probable normal filling pressures. The right ventricle is normal in size and function. The left atrial size is normal. There is no significant valvular heart disease. The aortic root is normal size. Procedure: A two-dimensional transthoracic echocardiogram with color flow and Doppler was performed. The study quality was technically good. There is no prior echocardiogram noted for this patient. The patient was in normal sinus rhythm during the exam. Left Ventricle: The left ventricle is normal in size. Left ventricular wall thickness is mildly increased. There is no ventricular septal defect visualized. Left ventricular systolic function is normal. The ejection fraction is estimated to be 55-60%. There are no obvious focal wall motion abnormalities noted but poor endocardial definition reduces the sensitivity for the detection of such. Diastolic parameters suggest a relaxation abnormality of the left ventricle, consistent with probable normal filling pressures. Right Ventricle: The right ventricle is normal in size and function. Atria: The left atrial size is normal. Right atrial size is normal. There is no Doppler evidence for an atrial septal defect. Mitral Valve: The mitral valve is normal in structure and function. There is no mitral regurgitation noted. Aortic Valve: The aortic valve is trileaflet. The aortic valve opens well. No aortic regurgitation is present. Tricuspid Valve: The tricuspid valve is normal in structure and function. No tricuspid regurgitation. Pulmonic Valve: The pulmonic valve is normal in structure and function. There is no pulmonic valvular regurgitation. There is no significant valvular heart disease. Great Vessels: The aortic root is normal size. The dimensions of the ascending aorta are normal. The pulmonary artery is normal size. The IVC is of normal diameter and collapses greater than 50% with a sniff. This suggests a low right atrial pressure of 3 mm Hg. Pericardium/ Pleura There is no pericardial effusion. There is no pleural effusion. MMode/2D Measurements & Calculations LVIDd: 4.9 cm LVOT diam: 2.3 cm LVIDs: 3.6 cm Ao root diam: 3.0 cm FS: 26.3 % asc Aorta Diam: 3.4 cm EPSS: 0.98 cm IVSd: 1.1 cm LVPWd: 1.1 cm LV shelley. diameter/BSA (cm/m^2): 2.3 LV sys. diameter/BSA (cm/m^2): 1.7 LA A2 area: 20.4 cm2 RA long axis: 4.5 cm LA A4 area: 19.1 cm2 RA area: 12.5 cm2 LA length (vol): 6.1 cm RA vol: 29.2 ml LA vol: 54.6 ml RA : 13.4 ml/m2 LA vol index: 25.1 ml/m2 IVC diam: 1.9 cm RVD1 (basal): 3.9 cm RVD2 (mid): 3.5 cm TAPSE: 2.0 cm Doppler Measurements & Calculations Ao V2 max: 160.9 cm/sec LVOT Max Ramon: 102.2 cm/sec Ao V2 mean: 115.0 cm/sec LV V1 max P.2 mmHg Ao max P.4 mmHg LV V1 VTI: 18.1 cm Ao mean P.8 mmHg KATERINA(I,D): 2.9 cm2 Ao V2 VTI: 26.7 cm KATERINA(V,D): 2.8 cm2 sev ratio: 0.68 KATERINA indexed to BSA (cm^2/m^2): 1.3 MV E max ramon: 84.7 cm/sec PA V2 max: 91.3 cm/sec MV A max ramon: 103.4 cm/sec PA V2 mean: 51.9 cm/sec MV E/A: 0.82 PA mean P.4 mmHg Med Peak E' Ramon: 7.7 cm/sec PA pr(Accel): 51.6 mmHg E/E' med: 10.9 Lat Peak E' Ramon: 7.8 cm/sec E/E' lat: 10.8 E/e' average: 10.9 MV dec time: 0.23 sec SV(LVOT): 78.4 ml Reading Physician:10:31 AM
--- NOTE | 2024-06-23 16:20 | P.PN_ITS ---
Subjective Subjective Date Patient Seen: 06/23/24 Time Patient Seen: 12:45 Interval history: Narrative: The patient was a 39-year-old male who presented with left elbow swelling and redness. This developed as a palumbo or pimple which is girlfriend tried to help him pump several days ago. He was since developed progressive redness, and swelling of the elbow and forearm. He presented to the emergency department and was I and D with cultures sent. The patient has significant redness and swelling of his arm from just above the elbow to alf down the forearm. He denies any difficulty moving his hand or numbness. No fevers, or chills. He was been fatigued. He was otherwise healthy and a BMI of 35. It was a significant leukocytosis with a WBC of 27. T99.0, HR 105. Interval history: The patient reports feeling better. He continues to have purulent drainage from the left elbow. Exam Vital Signs (past 8 hours): - 06/23/24 08:48 06/23/24 12:00 Temperature 98.2 F 97.5 F L Pulse Rate 84 88 Respiratory Rate 14 14 Blood Pressure 138/84 125/71 Pulse Oximetry 97 98 Oxygen Flow Rate 0 0 Oxygen Delivery Method Room Air Oxygen Flow Rate 0 Narrative Exam Narrative: NAD, alert and oriented, fluent speech, calm. Oropharynx unremarkable, no droop. Neck supple, midline trachea, no adenopathy. Lungs clear, normal rate and effort. Heart regular, no murmur gallop or rub. Abdomen is soft, non distended and non tender. Extremities are free of edema. Left arm is swollen and red at the elbow down alf through the forearm, imprving, with expressible purulence from the incision site. He was normal range of motion of the elbow. Skin is otherwise free of rash or lesions. Joints are not swollen or deformed. Judgment appears to be normal. Objective Labs 06/23/24 04:51 06/22/24 12:10 Labs: Laboratory Results - last 24 hr 06/22/24 06/23/24 12:10 04:51 WBC 21.2 H RBC 4.58 Hgb 13.5 Hct 40.2 L MCV 88.0 MCH 29.6 MCHC 33.6 RDW 13.8 Plt Count 515 H Neut % (Auto) 77.3 H Lymph % (Auto) 9.1 L [place] % (Auto) 9.4 Eos % (Auto) 3.5 Baso % (Auto) 0.7 Neut # (Auto) 82707 H Lymph # (Auto) 1900 [place] # (Auto) 2000 H Eos # (Auto) 800 H Baso # (Auto) 200 H A.calcoaceticus-baumannii cmplx PCR Not detected Bacteroides fragilis Not detected Erendira albicans (PCR) Not detected Erendira auris (PCR) Not detected C. glabrata (PCR) Not detected C. krusei (PCR) Not detected C. parapsilosis (PCR) Not detected C. tropicalis (PCR) Not detected C. neoform/gattii (PCR) Not detected Enterobacterales (PCR) Not detected E. cloacae complex PCR Not detected Enterococc faecalis PCR Not detected Enterococc faecium PCR Not detected E. coli (PCR) Not detected H. influenzae (PCR) Not detected Klebsiella aerogenes (PCR) Not detected Klebsiella oxytoca PCR Not detected Klebsiella pneumoniae Not detected List. monocytogenes PCR Not detected N. meningitidis (PCR) Not detected Proteus species (PCR) Not detected Salmonella spp. (PCR) Not detected Serratia marcescens PCR Not detected Staphylococcus sp PCR Detected Staph aureus (PCR) Detected mecA/C & MREJ Resist Gene Not detected mecA/C-Methicil Resis Gene Not applicable mcr-1 Colistin Res Gene PCR Not applicable Staph epidermidis (PCR) Not detected Staph lugdunensis PCR Not detected S. maltophilia (PCR) Not detected Streptococcus sp PCR Not detected Group A Strep (PCR) Not detected Strep agalactiae (PCR) Not detected Strep pneumoniae (PCR) Not detected P. aeruginosa (PCR) Not detected Crystal/B-Vanco Res Genes Not applicable blaIMP Car res Gene PCR Not applicable KPC-Carbap Res Gene PCR Not applicable blaNDM Car Res Gene PCR Not applicable OXA-48 Carbapenem Resis Gene (PCR) Not applicable blaVIM Car Res Gene PCR Not applicable CTX-M Gene Resistance (PCR) Not applicable [facility] Medical History Patient denies medical problems Social History household members: spouse and family Smoking Status: Current every day smoker alcohol intake: never Assessment & Plan Assessment & Plan narrative: 1. Left elbow cellulitis and abscess, present on admission and active. 2. Significant leukocytosis, present on admission and active. 3. Staph aureus septicemia. Rule out endocarditis. Check echocardiogram. 3. Obesity class 2 with a BMI of 35.3, present on admission and active. Plan: - Empiric antibiotics with ceftriaxone and vancomycin. - Follow cultures - Echocardiogram - Consider PICC/home IV antibiotics HECTOR is 06/24, anticipate a 2 midnight stay given significant degree of cellulitis and sepsis. Inpatient status. Full resuscitation. Quality VTE Deep Vein Thrombosis/Pulmonary Embolism Present on Admission: No PROFEE Charge codes Subsequent inpatient/observation care: 51561
[2024-06-23 18:00] VITALS: BP 134/78; PULSE 94; RESP 15; TEMP 36.8; O2SAT 98
[2024-06-23 20:00] VITALS: BP 130/80; PULSE 99; RESP 16; TEMP 36.7; O2SAT 98
[2024-06-24 00:39] VITALS: BP 121/73; PULSE 88; RESP 16; TEMP 36.6; O2SAT 97
[2024-06-24 05:44] VITALS: BP 145/86; PULSE 78; RESP 16; TEMP 36.4; O2SAT 98
[2024-06-24 05:50] LABS: Add Manual Diff / Slide Review NO; Basophils Absolute Auto 100 /uL (0-100); Basophils Percent Auto 0.8 % (0-2); Eosinophils Absolute Auto 1000 /uL (0-450); Eosinophils Percent Auto 5.9 % (2-4); Hematocrit 43.1 % (41-53); Hemoglobin 14.7 g/dL (13.5-17.5); Lymphocytes Absolute Auto 2100 /uL (1100-4500); Lymphocytes Percent Auto 12.3 % (25-40); Mean Corpuscular Hemoglobin 29.9 PG (26-34); Mean Corpuscular Volume 87.9 fL (80-100); Monocytes Absolute Auto 1500 /uL (0-900); Monocytes Percent Auto 9.1 % (3-14); Neutrophils Absolute Auto 12200 /uL (1500-7000); Neutrophils Percent Auto 71.9 % (50-75); Platelet Count 577 X10^3/uL (150-400); Red Blood Cell Count 4.91 X10^6/uL (4.5-5.9); Red Cell Distribution Width 13.7 % (11.6-14.8); White Blood Cell Count 16.9 X10^3/uL (4.5-11.0)
[2024-06-24 06:03] LABS: C-Reactive Protein Quant 6.6 mg/dL (<1.0)
[2024-06-24 07:00] LABS: Erythrocyte Sedimentation Rate 48 MM/HR (0-15)
[2024-06-24 08:00] VITALS: BP 143/90; PULSE 85; RESP 16; TEMP 36.6; O2SAT 99
[2024-06-24 09:18] LABS: Vancomycin Trough 8.8 ug/mL (10-20)
[2024-06-24] MEDS: VANCOMYCIN 1,500 MG/300 ML PIGGYBACK 200 MG IV (09:38)
[2024-06-24 12:00] VITALS: BP 142/88; PULSE 87; RESP 18; TEMP 36.6; O2SAT 97
[2024-06-24 12:31] LABS: Vancomycin Peak 31.8 ug/mL (20-40)
--- NOTE | 2024-06-24 12:33 | P.PN_ITS ---
Subjective Subjective Date Patient Seen: 06/24/24 Time Patient Seen: 11:20 Interval history: Narrative: The patient was a 39-year-old male who presented with left elbow swelling and redness. This developed as a palumbo or pimple which is girlfriend tried to help him pump several days ago. He was since developed progressive redness, and swelling of the elbow and forearm. He presented to the emergency department and was I and D with cultures sent. The patient has significant redness and swelling of his arm from just above the elbow to penitentiary down the forearm. He denies any difficulty moving his hand or numbness. No fevers, or chills. He was been fatigued. He was otherwise healthy and a BMI of 35. It was a significant leukocytosis with a WBC of 27. T99.0, HR 105. Interval history: The patient reports that he continues to have purulent drainage from the left elbow but improving. He remains afebrile. He denies back pain, joint pain, headache, lateralizing weakness, paresthesias or other skin rash or lesions. Exam Vital Signs (past 8 hours): - 06/24/24 05:44 06/24/24 08:00 Temperature 97.5 F L 98 F Pulse Rate 78 85 Respiratory Rate 16 16 Blood Pressure 145/86 H 143/90 H Pulse Oximetry 98 99 Oxygen Flow Rate 0 0 Oxygen Delivery Method Room Air Oxygen Flow Rate 0 Narrative Exam Narrative: NAD, alert and oriented, fluent speech, calm. Neck supple, midline trachea, no adenopathy. Lungs clear, normal rate and effort. Heart regular, no murmur gallop or rub. Abdomen is soft, non distended and non tender. Extremities are free of edema. Left arm is swollen and red at the elbow down penitentiary through the forearm, much improved, with expressible purulence from the incision site. He was normal range of motion of the elbow. Skin is otherwise free of rash or lesions. Joints are not swollen or deformed. Judgment appears to be normal. Objective Imaging Echo: Radiologist's impression: The left ventricle is normal in size. Left ventricular systolic function is normal. The ejection fraction is estimated to be 55-60%. There are no obvious focal wall motion abnormalities noted but poor endocardial definition reduces the sensitivity for the detection of such. Diastolic parameters suggest a relaxation abnormality of the left ventricle, consistent with probable normal filling pressures. The right ventricle is normal in size and function. The left atrial size is normal. There is no significant valvular heart disease. The aortic root is normal size. Labs 06/24/24 05:00 06/22/24 12:10 Labs: Laboratory Results - last 24 hr 06/24/24 06/24/24 05:00 08:33 WBC 16.9 H RBC 4.91 Hgb 14.7 Hct 43.1 MCV 87.9 MCH 29.9 MCHC 34.0 RDW 13.7 Plt Count 577 H Neut % (Auto) 71.9 Lymph % (Auto) 12.3 L [place] % (Auto) 9.1 Eos % (Auto) 5.9 H Baso % (Auto) 0.8 Neut # (Auto) 94876 H Lymph # (Auto) 2100 [place] # (Auto) 1500 H Eos # (Auto) 1000 H Baso # (Auto) 100 ESR 48 H C-Reactive Protein 6.6 H Vancomycin Trough 8.8 L PFSH Medical History Patient denies medical problems Social History household members: spouse and family Smoking Status: Current every day smoker alcohol intake: never Assessment & Plan Assessment & Plan narrative: 1. Left elbow cellulitis and abscess due to methicillin sensitive Staph aureus, present on admission and active. No sign of endocarditis or metastatic infection. 2. Significant leukocytosis, present on admission and active. 3. Staph aureus septicemia in 1 of 2 blood cultures. Ruled out endocarditis by echocardiogram 06/24/2024. 3. Obesity class 2 with a BMI of 35.3, present on admission and active. Plan: - Currently on ceftriaxone and vancomycin, switch to IV cefazolin 2 g every 8 hours. - Repeat cultures - PICC/home IV antibiotics when repeat blood cultures negative. Plan of care was reviewed with the patient in detail today - Case reviewed with Dr. Ledy Bonilla of [facility] Infectious Disease today. Plan for outpatient follow-up with Infectious Disease. HECTOR is 2-3 days. Inpatient status. Full resuscitation. Quality VTE Deep Vein Thrombosis/Pulmonary Embolism Present on Admission: No PROFEE Charge codes Subsequent inpatient/observation care: [id number]
--- NOTE | 2024-06-24 16:02 | CM.DPC ---
DCP IV-Abx cont: Per , after consultation with ID MD recommendation of two negative wound cultures and then placement of PICC for IV Cefazolin Q8 for at least a week or maybe longer. SUMIT discussed with MD that due to pt's lack of stable housing and his hx of smoking meth then home infusion or SNF might be challenging to get set up. SW met bedside with pt, Sig Other, and young Dtr and explained role and they confirm they have been staying in the car in [place] and sometimes staying with pt's mother in order to attempt to remain sober from meth. Pt adamantly denies any hx of IV drug use but confirms he recently completed TAMIKO tx and admits to occasional meth use. SW discussed the barriers to home infusion or SNF with his hx of meth use and he acknowledges understanding. Pt states if [facility] accepted his referral then he could stay at his mom's house for the duration of the IV-Abx course. They have also been working with [facility] the past month to get into their housing program and have applied for [place] [employer] [facility] as well. Pt's Dtr stays with grandma when pt has not been in the hospital. SW faxed new referral to [facility] to review to determine if they would be willing to accept pt's referral as an option at d/c. Plan: SUMIT to follow closely for [facility] review to determine if home infusion an option at pt's mother's house vs remaining in the hospital for course of IV-Abx needed. LATONYA Saeed
[2024-06-24] MEDS: CEFAZOLIN 2 GM/100 ML PREMIX 100 ML IV (20:04)
[2024-06-24 20:26] VITALS: BP 142/95; PULSE 105; RESP 18; TEMP 36.6; O2SAT 97
[2024-06-25 00:21] VITALS: BP 137/79; PULSE 96; RESP 18; TEMP 36.8; O2SAT 97
[2024-06-25] MEDS: CEFAZOLIN 2 GM/100 ML PREMIX 100 ML IV ×3 (04:51→20:02)
[2024-06-25 06:00] VITALS: BP 127/78; PULSE 90; RESP 18; TEMP 36.6; O2SAT 96
--- NOTE | 2024-06-25 07:59 | P.PN_ITS ---
Subjective Subjective Date Patient Seen: 06/25/24 Time Patient Seen: 08:35 Interval history: Narrative: The patient was a 39-year-old male who presented with left elbow swelling and redness. This developed as a palumbo or pimple which is girlfriend tried to help him pump several days ago. He was since developed progressive redness, and swelling of the elbow and forearm. He presented to the emergency department and was I and D with cultures sent. The patient has significant redness and swelling of his arm from just above the elbow to senior care down the forearm. He denies any difficulty moving his hand or numbness. No fevers, or chills. He was been fatigued. He was otherwise healthy and a BMI of 35. It was a significant leukocytosis with a WBC of 27. T99.0, HR 105. Interval history: The patient reports that he continues to have purulent drainage from the left elbow but redness and swelling are almost completely resolved. He remains afebrile. He denies back pain, joint pain, headache, lateralizing weakness, paresthesias or other skin rash or lesions. Exam Vital Signs (past 8 hours): - 06/25/24 00:21 06/25/24 06:00 Temperature 98.2 F 97.8 F Pulse Rate 96 H 90 Respiratory Rate 18 18 Blood Pressure 137/79 127/78 Pulse Oximetry 97 96 Oxygen Flow Rate 0 0 Oxygen Delivery Method Room Air Oxygen Flow Rate 0 Narrative Exam Narrative: NAD, alert and oriented, fluent speech, calm. Neck supple, midline trachea, no adenopathy. Lungs clear, normal rate and effort. Heart regular, no murmur gallop or rub. Abdomen is soft, non distended and non tender. Extremities are free of edema. Left arm is mildly swollen at the elbow down senior care through the forearm, much improved, with only mild erythema around the dressing site, with expressible purulence from the incision site. He was normal range of motion of the elbow. Skin is otherwise free of rash or lesions. Joints are not swollen or deformed. Judgment appears to be normal. Objective Labs 06/24/24 05:00 06/22/24 12:10 Labs: Laboratory Results - last 24 hr 06/24/24 06/24/24 08:33 11:45 Vancomycin Peak 31.8 Vancomycin Trough 8.8 L [facility] Medical History Patient denies medical problems Social History household members: spouse and family Smoking Status: Current every day smoker alcohol intake: never Assessment & Plan Assessment & Plan narrative: 1. Left elbow cellulitis and abscess with septicemia due to methicillin sensitive Staph aureus, present on admission and active. No sign of endocarditis or metastatic infection. Case reviewed with Dr. Ledy Bonilla of [facility] on 06/24/2024. Plan to place PICC line and transition to outpatient IV antibiotics when 06/24/2024 blood cultures returned negative. 2. Significant leukocytosis, present on admission and active. 3. Staph aureus septicemia in 1 of 2 blood cultures. Ruled out endocarditis by echocardiogram 06/24/2024. 3. Obesity class 2 with a BMI of 35.3, present on admission and active. Plan: - Initially treated with ceftriaxone and vancomycin, switched to IV cefazolin 2 g every 8 hours on 06/24/2024. - Follow cultures - PICC/home IV antibiotics when repeat blood cultures negative. Plan of care was reviewed with the patient in detail today - Plan for outpatient follow-up with Infectious Disease. HECTOR is 2-3 days. Inpatient status. Full resuscitation. Quality VTE Deep Vein Thrombosis/Pulmonary Embolism Present on Admission: No IH PROFEE Charge codes Subsequent inpatient/observation care: 65691
[2024-06-25 12:00] VITALS: BP 140/89; PULSE 90; RESP 18; TEMP 36.9; O2SAT 97
--- NOTE | 2024-06-25 13:27 | CM.DPC ---
DCP Cont. Reviewed EMR and team rounds for status updates. Cultures remain pending and are not anticipated to be available until Wednesday, 06/27. Per Hospitalist, pt will then need a PICC placed, and he is anticipated to need 1-week OP IV antibiotics after d/c. Need to call [facility] on Wednesday, meth use may be a barrier, however, pt is asking his mother today if he can stay at her house for a week while he gets the IV meds, so should really not be a barrier in that setting. has been sleeping all day, slept all day yesterday, not involving herself in his care planning, kids were in the hospital bed with him despite contact precautions.
[2024-06-25 18:00] VITALS: BP 146/88; PULSE 78; RESP 18; TEMP 36.6; O2SAT 98
[2024-06-26] VITALS: BP 146/96; PULSE 85; RESP 18; TEMP 36.8; O2SAT 96
[2024-06-26] MEDS: CEFAZOLIN 2 GM/100 ML PREMIX 100 ML IV ×3 (05:28→20:05)
[2024-06-26 06:00] VITALS: BP 148/80; PULSE 85; RESP 18; TEMP 36.3; O2SAT 97
--- NOTE | 2024-06-26 09:32 | PC.NURSE ---
Pt refused heparin dose this morning and also refused both doses yesterday. He stated that he does not want any heparin shots. MD [place].
--- NOTE | 2024-06-26 11:36 | CM.DPNOTE ---
Addendum entered by LATONYA Oconnell 06/26/24 15:23: ADD: According to patient, his mom has agreed to him discharging to her home for ongoing IV abx; [address] in [place]. Elizabeth at [facility] updated via . Left a message via web[employer] group chat for the Transitions of Care nursing group through [facility]. asking if patient could be established w.a new provider. Patient's last medical visit was with Dr Howell before she retired from [facility]. In addition, patient will likely need labs drawn and line dressing changes (midline vs PICC) and [facility] will not be able to accommodate this. Patient will need orders for this to be done at the infusion center. CM team following closely for coordination. Dr Ortiz reports ID has been consulted today and he is awaiting further guidance re plan of care. Original Note: DCP Cont Reviewed chart. Patient discussed in multidisciplinary rounds. Patient is expected to need ongoing IV abx; Dr Ortiz is considering ortho consult today to r/o joint involvement. Met w/patient to review discharge plan and discuss recent drug use. Patient admits to meth use, patient reports last use was day of admission 06/22. Patient reports smoking meth, no current or hx of IVDU. Patient reports he is deathly afraid of needles. Discussed need for ongoing IV abx and asked patient if he plans to discharge to his mother's home. Patient explains that his mom lives in [place]; patient plans to discuss this plan with mom this afternoon. Otherwise, patient does not have a home to discharge to . Patient asks this WARDROBE MISTRESS what happens if he cannot stay with someone at discharge. Explained that the providers may consider a Q 24 option so that patient could come into the infusion suite for a dose Q24; patient reports he can come in daily. CM team following clinical course closely, need for discharge coordination is expected. FILIPPO
[2024-06-26 12:00] VITALS: BP 151/93; PULSE 90; RESP 21; TEMP 36.6; O2SAT 97
--- NOTE | 2024-06-26 16:28 | P.PN_ITS ---
Subjective Subjective Interval history: Narrative: The patient was a 39-year-old male who presented with left elbow swelling and redness. This developed as a palumbo or pimple which is girlfriend tried to help him pump several days ago. He was since developed progressive redness, and swelling of the elbow and forearm. He presented to the emergency department and was I and D with cultures sent. The patient has significant redness and swelling of his arm from just above the elbow to group home down the forearm. He denies any difficulty moving his hand or numbness. No fevers, or chills. He was been fatigued. He was otherwise healthy and a BMI of 35. It was a significant leukocytosis with a WBC of 27. T99.0, HR 105. Interval history: No drainage, awaiting response back from ID about possible need for outpatient consultation. Patient does not have PCP established. Exam Vital Signs (past 8 hours): - 06/26/24 12:00 Temperature 97.8 F Pulse Rate 90 Respiratory Rate 21 Blood Pressure 151/93 H Pulse Oximetry 97 Oxygen Flow Rate 0 Oxygen Delivery Method Room Air Oxygen Flow Rate 0 Narrative Exam Narrative: NAD, alert and oriented, fluent speech, calm. Neck supple, midline trachea, no adenopathy. Lungs clear, normal rate and effort. Heart regular, no murmur gallop or rub. Abdomen is soft, non distended and non tender. Extremities are free of edema. Left arm is mildly swollen at the elbow down group home through the forearm, much improved, with only mild erythema around the dressing site, no drainage today. normal range of motion of the elbow. Skin is otherwise free of rash or lesions. Joints are not swollen or deformed. Judgment appears to be normal. Objective Labs 06/24/24 05:00 06/22/24 12:10 [facility] Medical History Patient denies medical problems Social History household members: spouse and family Smoking Status: Current every day smoker alcohol intake: never Assessment & Plan Assessment & Plan narrative: 1. Left elbow cellulitis and abscess with MSSA bacteremia, present on admission and active. No sign of endocarditis or metastatic infection. 2. Significant leukocytosis, present on admission and active. 3. Staph aureus bacteremia in 1 of 2 blood cultures. Ruled out endocarditis by echocardiogram 06/24/2024. 3. Obesity class 2 with a BMI of 35.3, present on admission and active. Plan: - Initially treated with ceftriaxone and vancomycin, switched to IV cefazolin 2 g every 8 hours on 06/24/2024. - Cultures without growth on repeat - Ordered midline for likely 2 weeks IV antibiotics. - Awaiting discussion with infectious disease about need for outpatient ID follow up or not, however no PCP. - patient with methamphetamine use, but no recent IVDU. Likely discharge tomorrow Full resuscitation. Time-Based Coding :: [TOTAL MINUTES] spent with patient and on the chart (including review of chart, obtaining history, exam, reviewing outside data, placing orders, documenting exam and treatment plan, and counseling patient) on [DATE]. Quality VTE Deep Vein Thrombosis/Pulmonary Embolism Present on Admission: No
[2024-06-26 18:00] VITALS: PULSE 76; RESP 21; TEMP 36.5; O2SAT 95
[2024-06-26 20:00] VITALS: BP 140/82; PULSE 98; RESP 20; TEMP 36.6; O2SAT 96
[2024-06-27 02:00] VITALS: BP 136/83; PULSE 81; RESP 12; TEMP 36.2; O2SAT 97
[2024-06-27] MEDS: CEFAZOLIN 2 GM/100 ML PREMIX 100 ML IV ×3 (04:49→20:20)
[2024-06-27 05:18] LABS: Add Manual Diff / Slide Review NO; Basophils Absolute Auto 200 /uL (0-100); Basophils Percent Auto 1.3 % (0-2); Eosinophils Absolute Auto 900 /uL (0-450); Eosinophils Percent Auto 5.6 % (2-4); Hemoglobin 14.9 g/dL (13.5-17.5); Lymphocytes Absolute Auto 2500 /uL (1100-4500); Lymphocytes Percent Auto 15.4 % (25-40); Mean Corpuscular HGB Conc 33.1 % (30-36); Mean Corpuscular Hemoglobin 29.2 PG (26-34); Mean Corpuscular Volume 88.2 fL (80-100); Monocytes Absolute Auto 1200 /uL (0-900); Monocytes Percent Auto 7.3 % (3-14); Neutrophils Absolute Auto 11200 /uL (1500-7000); Neutrophils Percent Auto 70.4 % (50-75); Platelet Count 629 X10^3/uL (150-400); White Blood Cell Count 15.9 X10^3/uL (4.5-11.0)
[2024-06-27 05:37] LABS: Alanine Aminotransferase 28 IU/L (<50); Albumin 4.1 g/dL (3.5-5.0); Albumin Globulin Ratio 1.1 (1.0-2.8); Alkaline Phosphatase 48 U/L (38-126); Aspartate Aminotransferase 34 IU/L (17-59); BUN Creatinine Ratio 19.4 (6-22); Bilirubin Total 0.4 mg/dL (0.2-1.3); Blood Urea Nitrogen 20 mg/dL (9-20); Calcium 8.9 mg/dL (8.4-10.2); Carbon Dioxide 31 mmol/L (22-32); Chloride 102 mmol/L (98-107); Estimated Glomerular Filt Rate > 60 mL/min (>60); Globulin 3.7 g/dL (1.7-4.1); Glucose 104 mg/dL (70-100); HEMOLYSIS 23 (0-50); Magnesium 2.2 mg/dL (1.6-2.3); Potassium 4.5 mmol/L (3.4-5.1); Sodium 138 mmol/L (137-145); Total Protein 7.8 g/dL (6.3-8.2)
[2024-06-27 06:16] LABS: C-Reactive Protein Quant 1.9 mg/dL (<1.0); Creatine Kinase 46 U/L (55-170)
[2024-06-27 06:27] LABS: Erythrocyte Sedimentation Rate 25 MM/HR (0-15)
[2024-06-27 08:57] VITALS: BP 147/57; PULSE 91; RESP 18; TEMP 36.6; O2SAT 100
--- NOTE | 2024-06-27 11:01 | DIET.CONS ---
Dietary Consultation Note Admission Date: 06/22/2024 12:52 Assessment: 39 y M admitted left arm infection. PMH meth use. RD screened for LOS. EMR reviewed. 100% recorded PO intakes. DFM reviewed. 8% weight loss since 04/20/23, non-severe. Ht: 172.72 cm Wt: 103 kg BMI: 35.2 Last BM: 06/23/24 (06/24/24 06:35) MNA: 14 Jose Score: 23 Diet: 06/22/24 Dinner General (Regular) Diet Diet Modifications: Nutrition Percent Meal Consumed 100% 06/27/24 10:12 Percent Meal Consumed 100% 06/26/24 18:00 Percent Meal Consumed 100% 06/26/24 09:44 Percent Meal Consumed 100% 06/25/24 18:00 Labs: RBC 5.10 X10^6/uL (4.5-5.9) 06/27/24 04:58 Hgb 14.9 g/dL (13.5-17.5) 06/27/24 04:58 Hct 45.0 % (41-53) 06/27/24 04:58 Creatinine 1.03 mg/dL (0.66-1.25) 06/27/24 04:58 Lactate 0.7 mmol/L (0.7-2.1) 06/22/24 12:10 Electronically Signed by: Laura Rincon 06/27/24 11:01 Clinical Dietitian [address] [address]
[2024-06-27 14:24] VITALS: BP 120/76; PULSE 102; RESP 18; O2SAT 97
--- NOTE | 2024-06-27 15:00 | CM.DPNOTE ---
DCP Note CERAMIC ENGINEERING PROFESSOR reviewed EMR. Per Dr. Ortiz, consulted with [facility], rec pt to remain here to complete 7 days IV abx and then dc on PO abx, f/u appt with Noe scheduled for 07/10. CERAMIC ENGINEERING PROFESSOR updated TCM team, scheduled pt's SOC appt with Nelson AGUILAR 07/05/24 at 10:30am CERAMIC ENGINEERING PROFESSOR spoke with Leonard at [facility] to cancel referral. Appreciated update.. CERAMIC ENGINEERING PROFESSOR met with pt and partner in room. Reviewed plan. Pt remains in agreement. gave information for new SOC appt, in agreement and report will come to appt. Pt asked about housing information. CERAMIC ENGINEERING PROFESSOR provided information for community action, local churches, and [employer]. already on [facility] for [facility] and [employer] housing. CERAMIC ENGINEERING PROFESSOR provided additional local resources information for basic needs/food rodriguez. Pt and partner appreciate the information. Deny other social work/DCP needs at this time. P: here until at least Wednesday for IV abx, f/u with PCP Scott 07/[address] Liu 07/10. CM team will f/u for additional housing resources as needed LATONYA Schaefer
--- NOTE | 2024-06-27 19:03 | PM.PN.1 ---
Subjective Subjective Interval history: 39 M admitted with MSSA bacteremia due to a left arm abscess. Interval history: Discussed with infectious disease. He should see an ID physician, unfortunately unable to obtain an appointment prior to completion of IV antibiotics. Discussed that given his rapid clearance of cultures, a shorter course of IV antibiotics with cefazolin can be considered, with completion of 2 week total course with Linezolid. Referral was sent to ID clinic today. He has a follow up on 07/10. Exam Vital Signs (past 8 hours): - 06/27/24 14:24 Pulse Rate 102 H Respiratory Rate 18 Blood Pressure 120/76 Pulse Oximetry 97 Oxygen Flow Rate 0 Oxygen Delivery Method Room Air Oxygen Flow Rate 0 Narrative Exam Narrative: NAD, alert and oriented, fluent speech, calm. Neck supple, midline trachea, no adenopathy. Lungs clear, normal rate and effort. Heart regular, no murmur gallop or rub. Abdomen is soft, non distended and non tender. Extremities are free of edema. left arm is well appearing today, minimal erythema, no warmth. Skin is otherwise free of rash or lesions. Joints are not swollen or deformed. Judgment appears to be normal. Objective Labs 06/27/24 04:58 06/27/24 04:58 Labs: Laboratory Results - last 24 hr 06/27/24 04:58 WBC 15.9 H RBC 5.10 Hgb 14.9 Hct 45.0 MCV 88.2 MCH 29.2 MCHC 33.1 RDW 14.0 Plt Count 629 H Neut % (Auto) 70.4 Lymph % (Auto) 15.4 L [place] % (Auto) 7.3 Eos % (Auto) 5.6 H Baso % (Auto) 1.3 Neut # (Auto) 00052 H Lymph # (Auto) 2500 [place] # (Auto) 1200 H Eos # (Auto) 900 H Baso # (Auto) 200 H ESR 25 H Sodium 138 Potassium 4.5 Chloride 102 Carbon Dioxide 31 BUN 20 Creatinine 1.03 Estimated GFR > 60 BUN/Creatinine Ratio 19.4 Glucose 104 H Calcium 8.9 Magnesium 2.2 Total Bilirubin 0.4 AST 34 ALT 28 Alkaline Phosphatase 48 Total Creatine Kinase 46 L C-Reactive Protein 1.9 H Total Protein 7.8 Albumin 4.1 Globulin 3.7 Albumin/Globulin Ratio 1.1 [facility] Medical History Patient denies medical problems Social History household members: spouse and family Smoking Status: Current every day smoker alcohol intake: never Assessment & Plan Assessment & Plan narrative: 1. Left elbow cellulitis and abscess with MSSA bacteremia, present on admission and active. 2. MSSA bacteremia in 2/4 blood cultures. 3. Obesity class 2 with a BMI of 35.3, present on admission and active. Plan: - Initially treated with ceftriaxone and vancomycin, switched to IV cefazolin 2 g every 8 hours on 06/24/2024. - Cultures without growth on repeat, first negative culture is 06/24. Both blood and abscess / collection cultures have the same resistance profile. Both MSSA. - Ordered midline. Discussed with infectious disease provider today. Given risk factors including IVDU, lack of PCP, inability to get quick follow up recommended IV antibiotic therapy in the hospital. Given his rapid clearance, and source known, he is a candidate for a shorter inpatient IV source. Recommended 7 days of cefazolin as above, with course to complete on 06/30 in the evening, followed by another week of linezolid oral on discharge. He has an outpatient referral sent, will follow up with Dr. Liu on 07/10/24. - patient with methamphetamine use, but no recent IVDU. - WBC improved to 15.9, ESR from 48 on admit to 25 today. CRP from 6 to 1.9. CK 46. Likely afternoon discharge after cefazolin dose on 06/30 Full resuscitation. Discussed with infectious disease provider to formulate the above history, assessment and plan. Further coordinated plan with rn case manager today. Time-Based Coding :: [TOTAL MINUTES] spent with patient and on the chart (including review of chart, obtaining history, exam, reviewing outside data, placing orders, documenting exam and treatment plan, and counseling patient) on [DATE]. Quality VTE Deep Vein Thrombosis/Pulmonary Embolism Present on Admission: No
[2024-06-27 20:00] VITALS: BP 138/94; PULSE 97; RESP 16; TEMP 36.6; O2SAT 97
--- NOTE | 2024-06-27 20:36 | PC.NURSE ---
Midline dislodged due to pt interference with dressing. Educated importance of IV access. Will place PIV in meantime.
[2024-06-28 02:00] VITALS: BP 149/94; PULSE 82; RESP 16; TEMP 36.4; O2SAT 97
[2024-06-28] MEDS: CEFAZOLIN 2 GM/100 ML PREMIX 100 ML IV ×3 (05:37→20:32)
[2024-06-28] MEDS: OXYCODONE IR 5 MG TABLET PO (05:39)
[2024-06-28 05:58] LABS: Add Manual Diff / Slide Review NO; Basophils Absolute Auto 200 /uL (0-100); Basophils Percent Auto 1.1 % (0-2); Eosinophils Absolute Auto 900 /uL (0-450); Eosinophils Percent Auto 5.5 % (2-4); Hematocrit 43.9 % (41-53); Hemoglobin 14.7 g/dL (13.5-17.5); Lymphocytes Absolute Auto 3000 /uL (1100-4500); Lymphocytes Percent Auto 17.5 % (25-40); Mean Corpuscular HGB Conc 33.5 % (30-36); Mean Corpuscular Hemoglobin 29.6 PG (26-34); Mean Corpuscular Volume 88.5 fL (80-100); Monocytes Absolute Auto 1400 /uL (0-900); Monocytes Percent Auto 8.1 % (3-14); Neutrophils Absolute Auto 11500 /uL (1500-7000); Neutrophils Percent Auto 67.8 % (50-75); Platelet Count 623 X10^3/uL (150-400); Red Blood Cell Count 4.96 X10^6/uL (4.5-5.9); Red Cell Distribution Width 14.2 % (11.6-14.8); White Blood Cell Count 16.9 X10^3/uL (4.5-11.0)
[2024-06-28 06:24] LABS: Alanine Aminotransferase 27 IU/L (<50); Albumin 3.9 g/dL (3.5-5.0); Albumin Globulin Ratio 1.1 (1.0-2.8); Alkaline Phosphatase 42 U/L (38-126); Aspartate Aminotransferase 40 IU/L (17-59); BUN Creatinine Ratio 22.1 (6-22); Bilirubin Total 0.3 mg/dL (0.2-1.3); Blood Urea Nitrogen 21 mg/dL (9-20); Carbon Dioxide 31 mmol/L (22-32); Chloride 102 mmol/L (98-107); Estimated Glomerular Filt Rate > 60 mL/min (>60); Globulin 3.6 g/dL (1.7-4.1); Glucose 98 mg/dL (70-100); HEMOLYSIS 21 (0-50); Magnesium 2.2 mg/dL (1.6-2.3); Potassium 4.2 mmol/L (3.4-5.1); Sodium 138 mmol/L (137-145); Total Protein 7.5 g/dL (6.3-8.2)
[2024-06-28 08:00] VITALS: BP 120/87; PULSE 74; RESP 16; TEMP 36.7; O2SAT 97
[2024-06-28] MEDS: ACETAMINOPHEN 325 MG TABLET 650 MG PO (09:47)
--- NOTE | 2024-06-28 13:23 | PM.PN.1 ---
Subjective Subjective Interval history: 39 M admitted with MSSA bacteremia due to a left arm abscess. Discussed with infectious disease. He should see an ID physician, unfortunately unable to obtain an appointment prior to completion of IV antibiotics. Discussed that given his rapid clearance of cultures, a shorter course of IV antibiotics with cefazolin can be considered, with completion of 2 week total course with Linezolid. Referral was sent to ID clinic today. He has a follow up on 07/10. Interval history: no complaints today, some overnight sweats, and low back pain. No fever overnight and left arm is asymptomatic at this time. Exam Vital Signs (past 8 hours): - 06/28/24 08:00 Temperature 98.1 F Pulse Rate 74 Respiratory Rate 16 Blood Pressure 120/87 Pulse Oximetry 97 Oxygen Flow Rate 0 Oxygen Delivery Method Room Air Oxygen Flow Rate 0 Narrative Exam Narrative: NAD, alert and oriented, fluent speech, calm. Neck supple, midline trachea, no adenopathy. No midline tenderness of the neck or back. Lungs clear, normal rate and effort. Heart regular, no murmur gallop or rub. Abdomen is soft, non distended and non tender. Extremities are free of edema. left arm is well appearing today, no erythema, no warmth. Skin is otherwise free of rash or lesions. Joints are not swollen or deformed. Judgment appears to be normal. Objective Labs 06/28/24 05:06 06/28/24 05:06 Labs: Laboratory Results - last 24 hr 06/28/24 05:06 WBC 16.9 H RBC 4.96 Hgb 14.7 Hct 43.9 MCV 88.5 MCH 29.6 MCHC 33.5 RDW 14.2 Plt Count 623 H Neut % (Auto) 67.8 Lymph % (Auto) 17.5 L [place] % (Auto) 8.1 Eos % (Auto) 5.5 H Baso % (Auto) 1.1 Neut # (Auto) 73052 H Lymph # (Auto) 3000 [place] # (Auto) 1400 H Eos # (Auto) 900 H Baso # (Auto) 200 H Sodium 138 Potassium 4.2 Chloride 102 Carbon Dioxide 31 BUN 21 H Creatinine 0.95 Estimated GFR > 60 BUN/Creatinine Ratio 22.1 H Glucose 98 Calcium 9.0 Magnesium 2.2 Total Bilirubin 0.3 AST 40 ALT 27 Alkaline Phosphatase 42 Total Protein 7.5 Albumin 3.9 Globulin 3.6 Albumin/Globulin Ratio 1.1 [facility] Medical History Patient denies medical problems Social History household members: spouse and family Smoking Status: Current every day smoker alcohol intake: never Assessment & Plan Assessment & Plan narrative: 1. Left elbow cellulitis and abscess with MSSA bacteremia, present on admission and active. 2. MSSA bacteremia in 2/4 blood cultures. 3. Obesity class 2 with a BMI of 35.3, present on admission and active. Plan: - Initially treated with ceftriaxone and vancomycin, switched to IV cefazolin 2 g every 8 hours on 06/24/2024. - Cultures without growth on repeat, first negative culture is 06/24. Both blood and abscess / collection cultures have the same resistance profile. Both MSSA. - Ordered midline. Discussed with infectious disease provider today. Given risk factors including IVDU, lack of PCP, inability to get quick follow up recommended IV antibiotic therapy in the hospital. Given his rapid clearance, and source known, he is a candidate for a shorter inpatient IV source. Recommended 7 days of cefazolin as above, with course to complete on 06/30 in the evening, followed by another week of linezolid oral on discharge. He has an outpatient referral sent, will follow up with Dr. Liu on 07/10/24. - patient with methamphetamine use, but no recent IVDU. - WBC improved to 15.9, ESR from 48 on admit to 25. CRP from 6 to 1.9. CK 46. Slight bump in WBC count today 06/28, back pain appears musculoskeletal today, but monitor closely and if continued pain consider MRI imaging given his bacteremia and slight rise in WBC count today. Likely afternoon discharge after cefazolin dose on 06/30 Full resuscitation. Discussed with infectious disease provider to formulate the above history, assessment and plan. Further coordinated plan with family service caseworker today. Time-Based Coding :: [TOTAL MINUTES] spent with patient and on the chart (including review of chart, obtaining history, exam, reviewing outside data, placing orders, documenting exam and treatment plan, and counseling patient) on [DATE]. Quality VTE Deep Vein Thrombosis/Pulmonary Embolism Present on Admission: No
[2024-06-28 14:00] VITALS: BP 131/87; PULSE 89; RESP 18; TEMP 36.6; O2SAT 97
[2024-06-28 20:00] VITALS: BP 138/88; PULSE 88; RESP 16; TEMP 36.7; O2SAT 96
[2024-06-29 02:00] VITALS: BP 133/89; PULSE 65; RESP 16; TEMP 36.3; O2SAT 96
[2024-06-29 05:28] LABS: Add Manual Diff / Slide Review NO; Basophils Absolute Auto 200 /uL (0-100); Basophils Percent Auto 1.5 % (0-2); Eosinophils Absolute Auto 900 /uL (0-450); Eosinophils Percent Auto 5.2 % (2-4); Hematocrit 45.6 % (41-53); Hemoglobin 15.4 g/dL (13.5-17.5); Lymphocytes Absolute Auto 2700 /uL (1100-4500); Lymphocytes Percent Auto 16.1 % (25-40); Mean Corpuscular HGB Conc 33.7 % (30-36); Mean Corpuscular Hemoglobin 29.7 PG (26-34); Mean Corpuscular Volume 88.3 fL (80-100); Monocytes Absolute Auto 1400 /uL (0-900); Monocytes Percent Auto 8.6 % (3-14); Neutrophils Absolute Auto 11600 /uL (1500-7000); Neutrophils Percent Auto 68.6 % (50-75); Platelet Count 631 X10^3/uL (150-400); Red Blood Cell Count 5.16 X10^6/uL (4.5-5.9); Red Cell Distribution Width 13.8 % (11.6-14.8); White Blood Cell Count 16.9 X10^3/uL (4.5-11.0)
[2024-06-29 05:47] LABS: Alanine Aminotransferase 28 IU/L (<50); Albumin 4.1 g/dL (3.5-5.0); Albumin Globulin Ratio 1.1 (1.0-2.8); Alkaline Phosphatase 42 U/L (38-126); Aspartate Aminotransferase 41 IU/L (17-59); BUN Creatinine Ratio 24.7 (6-22); Bilirubin Total 0.4 mg/dL (0.2-1.3); Blood Urea Nitrogen 21 mg/dL (9-20); Calcium 9.1 mg/dL (8.4-10.2); Carbon Dioxide 28 mmol/L (22-32); Chloride 103 mmol/L (98-107); Estimated Glomerular Filt Rate > 60 mL/min (>60); Globulin 3.6 g/dL (1.7-4.1); Glucose 98 mg/dL (70-100); HEMOLYSIS 27 (0-50); Magnesium 2.2 mg/dL (1.6-2.3); Potassium 4.4 mmol/L (3.4-5.1); Sodium 138 mmol/L (137-145); Total Protein 7.7 g/dL (6.3-8.2)
[2024-06-29] MEDS: CEFAZOLIN 2 GM/100 ML PREMIX 100 ML IV ×3 (06:09→20:04)
--- NOTE | 2024-06-29 07:32 | PM.PN.1 ---
Subjective Subjective Interval history: Interval history: 39 M admitted with MSSA bacteremia due to a left arm abscess. Discussed with infectious disease. He should see an ID physician, unfortunately unable to obtain an appointment prior to completion of IV antibiotics. Discussed that given his rapid clearance of cultures, a shorter course of IV antibiotics with cefazolin can be considered, with completion of 2 week total course with Linezolid. Referral was sent to ID clinic today. He has a follow up on 07/10. S: His elbow is doing fine. He does have some left knee and lower back pain. He was encouraged to walk as much as possible today. No fevers or chills. Exam Vital Signs (past 8 hours): - 06/29/24 02:00 Temperature 97.4 F L Pulse Rate 65 Respiratory Rate 16 Blood Pressure 133/89 Pulse Oximetry 96 Oxygen Flow Rate 0 Oxygen Delivery Method Room Air Oxygen Flow Rate 0 Narrative Exam Narrative: NAD, alert and oriented. Fluent speech. Lungs are clear, normal rate and effort. Heart is regular, no murmur gallop or rub. Abdomen is soft, non distended. Extremities are free of edema. No redness or drainage from the left elbow. Objective Labs 06/29/24 05:03 06/29/24 05:03 Labs: Laboratory Results - last 24 hr 06/29/24 05:03 WBC 16.9 H RBC 5.16 Hgb 15.4 Hct 45.6 MCV 88.3 MCH 29.7 MCHC 33.7 RDW 13.8 Plt Count 631 H Neut % (Auto) 68.6 Lymph % (Auto) 16.1 L [place] % (Auto) 8.6 Eos % (Auto) 5.2 H Baso % (Auto) 1.5 Neut # (Auto) 15751 H Lymph # (Auto) 2700 [place] # (Auto) 1400 H Eos # (Auto) 900 H Baso # (Auto) 200 H Sodium 138 Potassium 4.4 Chloride 103 Carbon Dioxide 28 BUN 21 H Creatinine 0.85 Estimated GFR > 60 BUN/Creatinine Ratio 24.7 H Glucose 98 Calcium 9.1 Magnesium 2.2 Total Bilirubin 0.4 AST 41 ALT 28 Alkaline Phosphatase 42 Total Protein 7.7 Albumin 4.1 Globulin 3.6 Albumin/Globulin Ratio 1.1 [facility] Medical History Patient denies medical problems Social History household members: spouse and family Smoking Status: Current every day smoker alcohol intake: never Assessment & Plan Assessment & Plan narrative: 1. Left elbow cellulitis and abscess with MSSA bacteremia, present on admission and improved. 2. MSSA bacteremia in 2/4 blood cultures. 3. Obesity class 2 with a BMI of 35.3, present on admission and active. 4. Methamphetamine abuse, present on admission and active. Plan: - Initially treated with ceftriaxone and vancomycin, switched to IV cefazolin 2 g every 8 hours on 06/24/2024. - Cultures without growth on repeat, first negative culture is 06/24. Both blood and abscess / collection cultures have the same resistance profile. Both MSSA. - Ordered midline. Discussed with infectious disease provider 06/28. Given risk factors including IVDU, lack of PCP, inability to get quick follow up recommended IV antibiotic therapy in the hospital. Given his rapid clearance, and source known, he is a candidate for a shorter inpatient IV source. Recommended 7 days of cefazolin as above, with course to complete on 06/30 in the evening, followed by another week of linezolid oral on discharge. He has an outpatient referral sent, will follow up with Dr. Liu on 07/10/24. - patient with methamphetamine use, but no recent IVDU. - WBC improved to 15.9, ESR from 48 on admit to 25. CRP from 6 to 1.9. CK 46. Slight bump in WBC count today 06/28, back pain appears musculoskeletal today, but monitor closely and if continued pain consider MRI imaging given his bacteremia and slight rise in WBC count today. -MRI LS spine today to clear spine (with bacteremia and higher WBC) Likely afternoon discharge after cefazolin dose on 06/30 Full resuscitation. Discussed with infectious disease provider to formulate the above history, assessment and plan. Further coordinated plan with assistant case manager today. Time-Based Coding :: [TOTAL MINUTES] spent with patient and on the chart (including review of chart, obtaining history, exam, reviewing outside data, placing orders, documenting exam and treatment plan, and counseling patient) on [DATE]. Quality VTE Deep Vein Thrombosis/Pulmonary Embolism Present on Admission: No
[2024-06-29 08:00] VITALS: BP 142/86; PULSE 86; RESP 18; TEMP 36.4; O2SAT 98
--- NOTE | 2024-06-29 12:10 | DI.MRI.S_ITS ---
PROCEDURE: MR LUMBAR SPINE W CON INDICATIONS: bacteremia, lumbar pain, and high WBC R/O discitis. TECHNIQUE: Post-Gadolinium sagittal T1 spin echo with fat saturation through the lumbar spine. COMPARISON: None. FINDINGS: Image quality: Excellent. Limited exam with only a single sagittal postcontrast sequence. Bones: No enhancing osseous lesions are identified on this limited exam. IMPRESSION: Limited exam with only a single sagittal postcontrast sequence. No enhancing osseous lesions are identified on this limited exam. Dictated by: Nate Appiah M.D. on 06/29/2024 at 15:20 Approved by: Nate Appiah M.D. on 06/29/2024 at 15:22
[2024-06-29 14:00] VITALS: BP 128/89; PULSE 114; RESP 20; TEMP 36.4; O2SAT 98
[2024-06-29 20:00] VITALS: BP 146/94; PULSE 110; RESP 24; TEMP 35.7; O2SAT 97
[2024-06-30 02:00] VITALS: BP 138/100; PULSE 104; RESP 20; TEMP 36.3; O2SAT 98
[2024-06-30] MEDS: CEFAZOLIN 2 GM/100 ML PREMIX 100 ML IV ×3 (05:18→21:20)
[2024-06-30 08:00] VITALS: BP 147/94; PULSE 108; RESP 12; TEMP 36.1; O2SAT 97
[2024-06-30 08:28] LABS: Hematocrit 47.7 % (41-53); Hemoglobin 16.1 g/dL (13.5-17.5); Mean Corpuscular HGB Conc 33.8 % (30-36); Mean Corpuscular Hemoglobin 29.7 PG (26-34); Mean Corpuscular Volume 87.9 fL (80-100); Platelet Count 677 X10^3/uL (150-400); Red Blood Cell Count 5.42 X10^6/uL (4.5-5.9); Red Cell Distribution Width 13.9 % (11.6-14.8); White Blood Cell Count 19.6 X10^3/uL (4.5-11.0)
[2024-06-30 08:34] LABS: Alanine Aminotransferase 26 IU/L (<50); Albumin 4.6 g/dL (3.5-5.0); Albumin Globulin Ratio 1.2 (1.0-2.8); Alkaline Phosphatase 43 U/L (38-126); Aspartate Aminotransferase 34 IU/L (17-59); BUN Creatinine Ratio 18.9 (6-22); Bilirubin Total 0.5 mg/dL (0.2-1.3); Blood Urea Nitrogen 20 mg/dL (9-20); C-Reactive Protein Quant 0.8 mg/dL (<1.0); Calcium 9.6 mg/dL (8.4-10.2); Carbon Dioxide 30 mmol/L (22-32); Chloride 102 mmol/L (98-107); Estimated Glomerular Filt Rate > 60 mL/min (>60); Globulin 3.7 g/dL (1.7-4.1); Glucose 108 mg/dL (70-100); HEMOLYSIS < 15 (0-50); Potassium 4.6 mmol/L (3.4-5.1); Sodium 140 mmol/L (137-145); Total Protein 8.3 g/dL (6.3-8.2)
--- NOTE | 2024-06-30 09:05 | P.DS_ITS ---
History of Present Illness History of Present Illness Chief complaint: L arm infection, swelling Narrative: The patient was a 39-year-old male who presented with left elbow swelling and redness. This developed as a palumbo or pimple which is girlfriend tried to help him pump several days ago. He was since developed progressive redness, and swelling of the elbow and forearm. He presented to the emergency department and was I and D with cultures sent. The patient has significant redness and swelling of his arm from just above the elbow to assisted down the forearm. He denies any difficulty moving his hand or numbness. No fevers, or chills. He was been fatigued. He was otherwise healthy and a BMI of 35. It was a significant leukocytosis with a WBC of 27. T99.0, HR 105. Discharge Providers Provider Date of admission: 06/22/24 12:52 Primary care physician: Diamond Howell DO Consults: 06/22/24 11:45 Consult to [facility] - Organ Recovery Coordinator Stat Comment: Organ Recovery Coordinator Consult needed for:: Other reason (Comment) 06/22/24 14:18 Consult to [facility] - Organ Recovery Coordinator Routine Comment: Organ Recovery Coordinator Consult needed for:: Homeless Discharge provider: Errol Fontana MD Summary Hospital Course Discharge Diagnosis: 1. Left elbow cellulitis and abscess with MSSA bacteremia, present on admission and active. 2. MSSA bacteremia in 2/4 blood cultures. 3. Obesity class 2 with a BMI of 35.3, present on admission and active. Status at Discharge Cognitive/behavioral status at discharge: oriented Functional status at discharge: independent ambulation Overall status at discharge: patient is back to baseline Time Spent with Patient Time spent: Greater than 30 minutes Exam Vital Signs (past 8 hours): - 06/30/24 02:00 06/30/24 08:00 06/30/24 08:40 Temperature 97.4 F L 97.0 F L Pulse Rate 104 H 108 H Respiratory Rate 20 12 Blood Pressure 138/100 H 147/94 H Pulse Oximetry 98 97 Oxygen Delivery Method Room Air Oxygen Flow Rate 0 0 Oxygen Delivery Method Room Air Oxygen Flow Rate 0 Narrative Exam Narrative: NAD, alert and oriented. Fluent speech. Lungs are clear, normal rate and effort. Heart is regular, no murmur gallop or rub. Abdomen is soft, non distended. Extremities are free of edema. Objective Labs 06/30/24 08:12 06/30/24 08:12 Labs: Laboratory Results - last 24 hr 06/30/24 08:12 WBC 19.6 H RBC 5.42 Hgb 16.1 Hct 47.7 MCV 87.9 MCH 29.7 MCHC 33.8 RDW 13.9 Plt Count 677 H Sodium 140 Potassium 4.6 Chloride 102 Carbon Dioxide 30 BUN 20 Creatinine 1.06 Estimated GFR > 60 BUN/Creatinine Ratio 18.9 Glucose 108 H Calcium 9.6 Total Bilirubin 0.5 AST 34 ALT 26 Alkaline Phosphatase 43 C-Reactive Protein 0.8 Total Protein 8.3 H Albumin 4.6 Globulin 3.7 Albumin/Globulin Ratio 1.2 [facility] Medical History Patient denies medical problems Social History household members: spouse and family Smoking Status: Current every day smoker alcohol intake: never Discharge Plan Discharge orders & Medications Prescriptions: No Action epinephrine [EpiPen 2-Adan] 0.3 mg/0.3 mL auto-injector 0.3 mg IM Q5-15M PRN (Reason: anaphylaxis) Qty: 2 0RF Rx Instructions: do not exceed 3 doses per episode Follow up/Referrals: Diamond Howell DO [Primary Care Provider] - Other Ambulatory Orders: Referral to: (Schedule) Timeframe: 1 Week Location: Determined by Patient Ordered By: Bienvenido Ortiz Discharge Data Primary Care Provider: Diamond Howell Quality VTE Deep Vein Thrombosis/Pulmonary Embolism Present on Admission: No
--- NOTE | 2024-06-30 11:37 | DI.US.S_ITS ---
PROCEDURE: US EXTREMITY NONVASC UPPER LT INDICATIONS: rule out persist fluid collection left elbow TECHNIQUE: Real-time scanning was performed of the left elbow , with image documentation. COMPARISON: None. FINDINGS: 7 x 4 x 5 mm focus of decreased echogenicity and edema within the subcutaneous tissue. IMPRESSION: Small focus of echogenicity possibly related to fluid or debris. Dictated by: Edith Lynch M.D. on 06/30/2024 at 13:40 Approved by: Edith Lynch M.D. on 06/30/2024 at 13:41
--- NOTE | 2024-06-30 11:38 | P.PN_ITS ---
Subjective Subjective Interval history: Summary: He was admitted with a left elbow abscess and MSSA bacteremia. He was been treated with discussion and advice from Infectious Disease at [facility] ([facility] The patient had 7 days of IV cefazolin with a plan of going out today on oral linezolid. He was had no fevers and states his elbow is improved. However he does have a pronounced leukocytosis today, and a normalized CRP. Recommendations from idea to continue IV antibiotics and evaluate with blood cultures, sed rate and procalcitonin. The patient agrees to this change in plan. MRI of the lumbar spine was performed yesterday due to complaints of chronic back pain. This was normal. Subjective: He feels well. No fevers, or chills. He was left elbow feels improved. Exam Vital Signs (past 8 hours): - 06/30/24 08:00 06/30/24 08:40 Temperature 97.0 F L Pulse Rate 108 H Respiratory Rate 12 Blood Pressure 147/94 H Pulse Oximetry 97 Oxygen Delivery Method Room Air Oxygen Flow Rate 0 Oxygen Delivery Method Room Air Oxygen Flow Rate 0 Narrative Exam Narrative: NAD, alert and oriented. Fluent speech. Lungs are clear, normal rate and effort. Heart is regular, no murmur gallop or rub. Abdomen is soft, non distended. Extremities are free of edema. Left elbow still somewhat swollen and mildly red. There is no fluctuance. No drainage. Objective Labs 06/30/24 08:12 06/30/24 08:12 Labs: Laboratory Results - last 24 hr 06/30/24 08:12 WBC 19.6 H RBC 5.42 Hgb 16.1 Hct 47.7 MCV 87.9 MCH 29.7 MCHC 33.8 RDW 13.9 Plt Count 677 H Sodium 140 Potassium 4.6 Chloride 102 Carbon Dioxide 30 BUN 20 Creatinine 1.06 Estimated GFR > 60 BUN/Creatinine Ratio 18.9 Glucose 108 H Calcium 9.6 Total Bilirubin 0.5 AST 34 ALT 26 Alkaline Phosphatase 43 C-Reactive Protein 0.8 Total Protein 8.3 H Albumin 4.6 Globulin 3.7 Albumin/Globulin Ratio 1.2 [facility] Medical History Patient denies medical problems Social History household members: spouse and family Smoking Status: Current every day smoker alcohol intake: never Assessment & Plan Assessment & Plan narrative: 1. Left elbow cellulitis and abscess with MSSA bacteremia, present on admission and improved. WBC 19 today. 2. MSSA bacteremia in 2/4 blood cultures. 3. Obesity class 2 with a BMI of 35.3, present on admission and active. 4. Methamphetamine abuse, present on admission and active. Plan: -cancel discharge -continue cefazolin IV, anticipate a full 14 day course here. -repeat blood cultures, ESR, and procalcitonin today. -ultrasound left elbow to rule out retained fluid collection today. -discussed with Infectious Disease today, recommendations are reflected in the plan. Dr. Liu. -MRI LS spine for lower back pain on June 29 was negative. HECTOR is approximately 7 days. Discharge after 14 days of cefazolin IV, today is day 7. Full resuscitation. Time-Based Coding :: [TOTAL MINUTES] spent with patient and on the chart (including review of chart, obtaining history, exam, reviewing outside data, placing orders, documenting exam and treatment plan, and counseling patient) on [DATE]. Quality VTE Deep Vein Thrombosis/Pulmonary Embolism Present on Admission: No
[2024-06-30 13:08] LABS: Erythrocyte Sedimentation Rate 11 MM/HR (0-15)
[2024-06-30 14:00] VITALS: BP 139/86; PULSE 104; RESP 12; TEMP 36.4; O2SAT 97
[2024-06-30 20:00] VITALS: BP 142/95; PULSE 101; RESP 20; TEMP 36.3; O2SAT 97
[2024-07-01 02:08] VITALS: BP 140/84; PULSE 81; RESP 20; TEMP 36.3; O2SAT 95
[2024-07-01] MEDS: CEFAZOLIN 2 GM/100 ML PREMIX 100 ML IV ×3 (05:05→21:36)
[2024-07-01 08:13] VITALS: BP 130/77
[2024-07-01 10:39] LABS: Add Manual Diff / Slide Review YES; Hemoglobin 14.9 g/dL (13.5-17.5); Mean Corpuscular HGB Conc 33.2 % (30-36); Mean Corpuscular Hemoglobin 29.3 PG (26-34); Mean Corpuscular Volume 88.3 fL (80-100); Platelet Count 592 X10^3/uL (150-400); Red Blood Cell Count 5.09 X10^6/uL (4.5-5.9); Red Cell Distribution Width 14.1 % (11.6-14.8); White Blood Cell Count 16.4 X10^3/uL (4.5-11.0)
[2024-07-01 10:52] LABS: Blood Urea Nitrogen 24 mg/dL (9-20); Calcium 9.5 mg/dL (8.4-10.2); Carbon Dioxide 31 mmol/L (22-32); Chloride 102 mmol/L (98-107); Estimated Glomerular Filt Rate > 60 mL/min (>60); Glucose 108 mg/dL (70-100); HEMOLYSIS < 15 (0-50); Potassium 4.8 mmol/L (3.4-5.1); Sodium 139 mmol/L (137-145)
--- NOTE | 2024-07-01 11:57 | CM.DPNOTE ---
DCP Note WIRE FRAME LAMP SHADE MAKER reviewed EMR. per provider in morning rounds/chart review, pt's WBC went up yesterday. Dr. Liu wants pt to remain here another 7 days for IV abx, not dc home with inf jennifer due to drug use history/concerns about his reliability and ability to manage IV abx at home. WIRE FRAME LAMP SHADE MAKER met with pt, partner, and child in room. Pt denies any new CM needs at this time, does not particularly want to stay another week but also wants to get the infection dealt with. CM team will need to notify TCM team Wednesday of new plan and change his SOC appt again for after he is scheduled to dc. CM team will continue to follow closely for any additional DCP/CM needs that arise. LATONYA Schaefer
[2024-07-01 12:00] VITALS: BP 132/80; PULSE 74; RESP 16; TEMP 36.2; O2SAT 98
[2024-07-01 12:07] LABS: Neutrophils Absolute Manual 10988 /uL (3000-5900); RBC Morphology Normal Morphology; Total Cells Counted 100
--- NOTE | 2024-07-01 14:38 | P.PN_ITS ---
Subjective Subjective Interval history: 39-year-old male presently hospital day 9 admitted with left elbow cellulitis and abscess with MSSA bacteremia in the setting of methamphetamine abuse. Patient reports he is gradually feeling better. He states that he is getting improved range of motion back in his left arm. He states at 1 point his forearm was 3 times its normal size. He reports previous history of having an abscess that was incised and drained in the emergency department that the emergency room physician told him would feel like a little ?pinch?. He states it was severely painful. States he put off coming in this time due to fear of having the same thing happen this time. Due to increasing white blood cell yesterday, the recommendation was for him to remain in the hospital on IV antibiotics for the duration of his treatment. Today is day 03/22 of IV Ancef. Exam Vital Signs (past 8 hours): - 07/01/24 08:13 07/01/24 12:00 Temperature 97.1 F L Pulse Rate 74 Respiratory Rate 16 Blood Pressure 130/77 132/80 Pulse Oximetry 98 Oxygen Flow Rate 0 Oxygen Delivery Method Room Air Oxygen Flow Rate 0 Narrative Exam Narrative: GEN: Pleasant adult male, Alert and oriented x 3, NAD HEENT:NC, Face symmetric CHEST: Respiratory excursions symmetric, CTAB CV: RRR, no M/R/G ABD: Soft, NT/ND, BT present in all 4 quadrants, no organomegaly or masses EXTR: warm, well perfused, no C/C/E, left forearm is moderately swollen with erythema, there is a small puncture wound with a scab overlying it mild fluctuance noted SKIN: warm and dry, no rash NEURO: Alert and oriented x 3, nonfocal Objective Labs 07/01/24 10:20 07/01/24 10:20 Labs: Laboratory Results - last 24 hr 07/01/24 10:20 WBC 16.4 H RBC 5.09 Hgb 14.9 Hct 45.0 MCV 88.3 MCH 29.3 MCHC 33.2 RDW 14.1 Plt Count 592 H Neut % (Auto) Not Reportable Lymph % (Auto) Not Reportable [place] % (Auto) Not Reportable Eos % (Auto) Not Reportable Baso % (Auto) Not Reportable Lymph # (Auto) Not Reportable [place] # (Auto) Not Reportable Baso # (Auto) Not Reportable Total Counted 100 Seg Neutrophils % 64.0 Band Neutrophils % 3.0 Lymphocytes % (Manual) 22.0 L Monocytes % (Manual) 8.0 Eosinophils % (Manual) 3.0 Neutrophils # (Manual) 69832 H RBC Morphology Normal morphology Sodium 139 Potassium 4.8 Chloride 102 Carbon Dioxide 31 BUN 24 H Creatinine 1.09 Estimated GFR > 60 BUN/Creatinine Ratio 22.0 Glucose 108 H Calcium 9.5 PFSH Medical History Patient denies medical problems Social History household members: spouse and family Smoking Status: Current every day smoker alcohol intake: never Assessment & Plan Assessment & Plan narrative: 1. Left forearm/elbow cellulitis and abscess and associated MSSA bacteremia Patient had worsening leukocytosis yesterday with white count up from 16 to 19. As a result, recommendations were for him to remain in the hospital for the duration of his 14 days of antibiotic treatment. He and family are presently living in their car. There were concerns about his ability to be adherent for the duration of his IV antibiotic therapy. Today his white blood cell count is improved at 16.4. However, he has not had a normalized white blood cell count since admission he does express some discomfort with the daily lab draws and notes that his veins are getting pretty sore. Will plan to follow-up labs on July 03. 2. Methamphetamine abuse Reportedly currently active, but not IV use. 3. Thrombocytosis Platelet count remains elevated at 592, likely secondary to his present infection. Will monitor 4. Class 1 obesity BMI is 34.5. Would benefit from weight reduction. Code status Full Prophylaxis On heparin. Disposition Upon completion of IV antibiotics. Time-Based Coding :: [TOTAL MINUTES] spent with patient and on the chart (including review of chart, obtaining history, exam, reviewing outside data, placing orders, documenting exam and treatment plan, and counseling patient) on [DATE]. Quality VTE Deep Vein Thrombosis/Pulmonary Embolism Present on Admission: No
[2024-07-01 20:00] VITALS: BP 142/85; PULSE 92; RESP 20; TEMP 36.3; O2SAT 97
[2024-07-02 02:00] VITALS: BP 136/82; PULSE 81; RESP 18; TEMP 36.2; O2SAT 96
[2024-07-02] MEDS: CEFAZOLIN 2 GM/100 ML PREMIX 100 ML IV ×3 (05:20→20:20)
[2024-07-02 12:00] VITALS: BP 105/56; PULSE 91; RESP 16; TEMP 36.7; O2SAT 99
--- NOTE | 2024-07-02 13:02 | P.PN_ITS ---
Subjective Subjective Interval history: 39-year-old male presently hospital day 10 admitted with left elbow cellulitis and abscess with MSSA bacteremia in the setting of methamphetamine abuse. Patient reports he is continuing to feel better. Slept well overnight. Pain improving. Eating/drinking well. Moving his bowels. Due to increasing white blood cell on 06/30, the recommendation was for him to remain in the hospital on IV antibiotics for the duration of his treatment. Today is day 04/22 of IV Ancef. Exam Vital Signs (past 8 hours): Oxygen Delivery Method Room Air Oxygen Flow Rate 0 Narrative Exam Narrative: GEN: Pleasant adult male, Alert and oriented x 3, NAD HEENT:NC, Face symmetric CHEST: Respiratory excursions symmetric, CTAB CV: RRR, no M/R/G ABD: Soft, NT/ND, BT present in all 4 quadrants, no organomegaly or masses EXTR: warm, well perfused, no C/C/E, left forearm is moderately swollen with decreasing erythema, bandaid in place over wound, decreased fluctuance SKIN: warm and dry, no rash NEURO: Alert and oriented x 3, nonfocal Objective Labs 07/01/24 10:20 07/01/24 10:20 [facility] Medical History Patient denies medical problems Social History household members: spouse and family Smoking Status: Current every day smoker alcohol intake: never Assessment & Plan Assessment & Plan narrative: 1. Left forearm/elbow cellulitis and abscess and associated MSSA bacteremia Patient had worsening leukocytosis on 06/30 with white count up from 16 to 19. As a result, recommendations were for him to remain in the hospital for the duration of his 14 days of antibiotic treatment. He and family are presently living in their car. There were concerns about his ability to be adherent for the duration of his IV antibiotic therapy. Yesterday his white blood cell count is improved at 16.4. However, he has not had a normalized white blood cell count since admission. As he does express some discomfort with the daily lab draws and notes that his veins are getting pretty sore, we plan to follow-up labs on July 03. 2. Methamphetamine abuse Reportedly currently active, but not IV use. 3. Thrombocytosis Platelet count remains elevated at 592, likely secondary to his present infection. Will monitor 4. Class 1 obesity BMI is 34.5. Would benefit from weight reduction. Code status Full Prophylaxis On heparin. Disposition Upon completion of IV antibiotics. Time-Based Coding :: [TOTAL MINUTES] spent with patient and on the chart (including review of chart, obtaining history, exam, reviewing outside data, placing orders, documenting exam and treatment plan, and counseling patient) on [DATE]. Quality VTE Deep Vein Thrombosis/Pulmonary Embolism Present on Admission: No
[2024-07-02 20:00] VITALS: BP 142/77; PULSE 97; RESP 17; TEMP 36.8; O2SAT 96
[2024-07-03 02:00] VITALS: BP 143/91; PULSE 95; RESP 18; TEMP 36.2; O2SAT 95
[2024-07-03 05:47] LABS: Add Manual Diff / Slide Review NO; Basophils Absolute Auto 100 /uL (0-100); Basophils Percent Auto 0.7 % (0-2); Eosinophils Absolute Auto 600 /uL (0-450); Eosinophils Percent Auto 3.9 % (2-4); Hemoglobin 15.8 g/dL (13.5-17.5); Lymphocytes Absolute Auto 2000 /uL (1100-4500); Lymphocytes Percent Auto 12.9 % (25-40); Mean Corpuscular HGB Conc 33.6 % (30-36); Mean Corpuscular Hemoglobin 29.8 PG (26-34); Mean Corpuscular Volume 88.6 fL (80-100); Monocytes Absolute Auto 1600 /uL (0-900); Monocytes Percent Auto 10.3 % (3-14); Neutrophils Absolute Auto 11400 /uL (1500-7000); Neutrophils Percent Auto 72.2 % (50-75); Platelet Count 550 X10^3/uL (150-400); Red Blood Cell Count 5.31 X10^6/uL (4.5-5.9); Red Cell Distribution Width 13.6 % (11.6-14.8); White Blood Cell Count 15.8 X10^3/uL (4.5-11.0)
[2024-07-03] MEDS: CEFAZOLIN 2 GM/100 ML PREMIX 100 ML IV ×3 (05:51→20:31)
--- NOTE | 2024-07-03 08:40 | P.PN_ITS ---
Subjective Subjective Interval history: Summary: 39-year-old male presently hospital day 10 admitted with left elbow cellulitis and abscess with MSSA bacteremia in the setting of methamphetamine abuse. Due to increasing white blood cell on 06/30, the recommendation was for him to remain in the hospital on IV antibiotics for the duration of his treatment. Today is day 05/22 of IV Ancef. S: He was doing well, no fevers or chills. He was elbow is also doing well. WBC 15.8. Platelet count 550. Exam Vital Signs (past 8 hours): - 07/03/24 02:00 Temperature 97.2 F L Pulse Rate 95 H Respiratory Rate 18 Blood Pressure 143/91 H Pulse Oximetry 95 Oxygen Flow Rate 0 Oxygen Delivery Method Room Air Oxygen Flow Rate 0 Narrative Exam Narrative: NAD, alert and oriented. Fluent speech. Lungs are clear, normal rate and effort. Heart is regular, no murmur gallop or rub. Abdomen is soft, non distended. Extremities are free of edema. Left elbow is unremarkable, no fluid collection or redness. Objective Labs 07/03/24 05:00 07/01/24 10:20 Labs: Laboratory Results - last 24 hr 07/03/24 05:00 WBC 15.8 H RBC 5.31 Hgb 15.8 Hct 47.0 MCV 88.6 MCH 29.8 MCHC 33.6 RDW 13.6 Plt Count 550 H Neut % (Auto) 72.2 Lymph % (Auto) 12.9 L [place] % (Auto) 10.3 Eos % (Auto) 3.9 Baso % (Auto) 0.7 Neut # (Auto) 74406 H Lymph # (Auto) 2000 [place] # (Auto) 1600 H Eos # (Auto) 600 H Baso # (Auto) 100 PFSH Medical History Patient denies medical problems Social History household members: spouse and family Smoking Status: Current every day smoker alcohol intake: never Assessment & Plan Assessment & Plan narrative: 1. Left forearm/elbow cellulitis and abscess and associated MSSA bacteremia, present on admission improved. Patient had worsening leukocytosis on 06/30 with white count up from 16 to 19. As a result, recommendations were for him to remain in the hospital for the duration of his 14 days of antibiotic treatment. He and family are presently living in their car. There were concerns about his ability to be adherent for the duration of his IV antibiotic therapy. Yesterday his white blood cell count is improved at 16.4. However, he has not had a normalized white blood cell count since admission. As he does express some discomfort with the daily lab draws and notes that his veins are getting pretty sore, we plan to follow-up labs on July 03. 2. Methamphetamine abuse, stable Reportedly currently active, but not IV use. 3. Thrombocytosis, stable Platelet count remains elevated at 592, likely secondary to his present infection. Will monitor 4. Class 1 obesity, active BMI is 34.5. Would benefit from weight reduction. Plan: -complete 14 days of IV therapy here for bacteremia, Staph. Code status Full Prophylaxis On heparin. Disposition Upon completion of IV antibiotics. Time-Based Coding :: [TOTAL MINUTES] spent with patient and on the chart (including review of chart, obtaining history, exam, reviewing outside data, placing orders, documenting exam and treatment plan, and counseling patient) on [DATE]. Quality VTE Deep Vein Thrombosis/Pulmonary Embolism Present on Admission: No
[2024-07-03 09:00] VITALS: BP 116/66; PULSE 95; RESP 17; TEMP 36.7; O2SAT 98
--- NOTE | 2024-07-03 14:57 | CM.DPNOTE ---
DCP Note RATING CLERK reviewed EMR. Current planned stop date for IV abx is 07/06. RATING CLERK messaged TCM team to reschedule PCP appt for after current IV abx stop date. Response pending. P: dc back to car/grandmothers house when IV abx course completed. anticipate 07/06? CM team will assist with rescheduling SOC PCP appt as able. CM team will continue to follow closely for any additional DCP/CM needs. LATONYA Schaefer
[2024-07-03 16:00] VITALS: BP 135/86; PULSE 94; RESP 18; TEMP 36.7; O2SAT 98
[2024-07-03 20:00] VITALS: BP 134/59; PULSE 66; RESP 18; TEMP 36.5; O2SAT 96
[2024-07-04 02:00] VITALS: BP 136/80; PULSE 83; RESP 18; TEMP 36.8; O2SAT 98
[2024-07-04] MEDS: CEFAZOLIN 2 GM/100 ML PREMIX 100 ML IV ×3 (04:35→21:42)
--- NOTE | 2024-07-04 07:23 | P.PN_ITS ---
Subjective Subjective Interval history: S: Exam Vital Signs (past 8 hours): - 07/04/24 02:00 Temperature 98.3 F Pulse Rate 83 Respiratory Rate 18 Blood Pressure 136/80 Pulse Oximetry 98 Oxygen Flow Rate 0 Oxygen Delivery Method Room Air Oxygen Flow Rate 0 Narrative Exam Narrative: NAD, alert and oriented. Fluent speech. Lungs are clear, normal rate and effort. Heart is regular, no murmur gallop or rub. Abdomen is soft, non distended. Extremities are free of edema. Objective Labs 07/03/24 05:00 07/01/24 10:20 [facility] Medical History Patient denies medical problems Social History household members: spouse and family Smoking Status: Current every day smoker alcohol intake: never Assessment & Plan Assessment & Plan narrative: [address] [address] Progress Note Patient: Chinmay Cotton MR#: [id number] : 1985 Acct:[id number] Age/Sex: 39 / M Admit Date: 06/22/24 Provider: Errol Fontana MD Subjective Subjective Interval history: Summary: 39-year-old male presently hospital day 10 admitted with left elbow cellulitis and abscess with MSSA bacteremia in the setting of methamphetamine abuse. Due to increasing white blood cell on 06/30, the recommendation was for him to remain in the hospital on IV antibiotics for the duration of his treatment. Today is day 05/22 of IV Ancef. S: He was doing well, no fevers or chills. He was elbow is also doing well. WBC 15.8. Platelet count 550. Exam Vital Signs (past 8 hours): - 07/03/2402:00 Temperature 97.2 F L Pulse Rate 95 H Respiratory Rate 18 Blood Pressure 143/91 H Pulse Oximetry 95 Oxygen Flow Rate 0 Oxygen Delivery Method Room Air Oxygen Flow Rate 0 Narrative Exam Narrative: NAD, alert and oriented. Fluent speech. Lungs are clear, normal rate and effort. Heart is regular, no murmur gallop or rub. Abdomen is soft, non distended. Extremities are free of edema. Left elbow is unremarkable, no fluid collection or redness. Objective Labs 07/03/24 05:00 07/01/24 10:20 Labs: Laboratory Results - last 24 hr 07/03/24 05:00 WBC 15.8 H RBC 5.31 Hgb 15.8 Hct 47.0 MCV 88.6 MCH 29.8 MCHC 33.6 RDW 13.6 Plt Count 550 H Neut % (Auto) 72.2 Lymph % (Auto) 12.9 L [place] % (Auto) 10.3 Eos % (Auto) 3.9 Baso % (Auto) 0.7 Neut # (Auto) 14389 H Lymph # (Auto) 2000 [place] # (Auto) 1600 H Eos # (Auto) 600 H Baso # (Auto) 100 PFSH Medical History Patient denies medical problems Social History household members: spouse and family Smoking Status: Current every day smoker alcohol intake: never Assessment & Plan Assessment & Plan narrative: 1. Left forearm/elbow cellulitis and abscess and associated MSSA bacteremia, present on admission improved. Patient had worsening leukocytosis on 06/30 with white count up from 16 to 19. As a result, recommendations were for him to remain in the hospital for the duration of his 14 days of antibiotic treatment. He and family are presently living in their car. There were concerns about his ability to be adherent for the duration of his IV antibiotic therapy. Yesterday his white blood cell count is improved at 16.4. However, he has not had a normalized white blood cell count since admission. As he does express some discomfort with the daily lab draws and notes that his veins are getting pretty sore, we plan to follow-up labs on July 03. 2. Methamphetamine abuse, stable Reportedly currently active, but not IV use. 3. Thrombocytosis, stable Platelet count remains elevated at 592, likely secondary to his present infection. Will monitor 4. Class 1 obesity, active BMI is 34.5. Would benefit from weight reduction. Plan: -complete 14 days of IV therapy here for bacteremia, Staph. Code status Full Prophylaxis On heparin. Disposition Upon completion of IV antibiotics. Time-Based Coding :: [TOTAL MINUTES] spent with patient and on the chart (including review of chart, obtaining history, exam, reviewing outside data, placing orders, documenting exam and treatment plan, and counseling patient) on [DATE]. Quality VTE Deep Vein Thrombosis/Pulmonary Embolism Present on Admission: No
[2024-07-04] MEDS: ACETAMINOPHEN 325 MG TABLET 650 MG PO (08:18)
--- NOTE | 2024-07-04 10:21 | DIET.PN1 ---
Dietary Progress Note Assessment: [address]/u. EMR reviewed. 75-100% PO intakes recorded during stay. DFM reviewed. Per note, [facility] provided pt with resource information for local food [employer]. No nutritional interventions needed at this time. Will f/u in 7 days if pt has not d/c. Ht: 172.72 cm Wt: 103 kg BMI: 35.2 Last BM: 07/04/24 (07/04/24 06:00) MNA: 14 Jose Score: 23 Diet: 06/22/24 Dinner General (Regular) Diet Diet Modifications: 07/02/24 Dinner Courtesy Tray (Peds, comfort care) Diet Modifications: Nutrition Percent Meal Consumed 100% 07/03/24 18:00 Percent Meal Consumed 100% 07/03/24 12:00 Percent Meal Consumed 100% 07/02/24 18:00 Percent Meal Consumed 75% 07/02/24 16:09 Percent Meal Consumed 75% 07/02/24 12:00 Labs: RBC 5.31 X10^6/uL (4.5-5.9) 07/03/24 05:00 Hgb 15.8 g/dL (13.5-17.5) 07/03/24 05:00 Hct 47.0 % (41-53) 07/03/24 05:00 Creatinine 1.09 mg/dL (0.66-1.25) 07/01/24 10:20 Lactate 0.7 mmol/L (0.7-2.1) 06/22/24 12:10 Electronically Signed by: Laura Rincon 07/04/24 10:21 Clinical Dietitian [address] [address]
--- NOTE | 2024-07-04 10:22 | PC.NURSE ---
HAND SINGER placed IV with Ultra sound in begining of shift and then it infultrated soon after, ICU is in room now putting in another IV line. AM meds were late due to no IV access. retail shift supervisor provider was notified when IV was lost before day shift this morning per report given. Pt is sitting comfortable in bed eating breakfast PO meds given per orders.
--- NOTE | 2024-07-04 11:48 | PM.PN.1 ---
Subjective Subjective Interval history: Subjective: He was doing well, no new complaints. His last day of antibiotics Wednesday. No fevers or chills. Exam Vital Signs (past 8 hours): Oxygen Delivery Method Room Air Oxygen Flow Rate 0 Narrative Exam Narrative: NAD, alert and oriented. Fluent speech. Lungs are clear, normal rate and effort. Heart is regular, no murmur gallop or rub. Abdomen is soft, non distended. Extremities are free of edema. Objective Labs 07/03/24 05:00 07/01/24 10:20 [facility] Medical History Patient denies medical problems Social History household members: spouse and family Smoking Status: Current every day smoker alcohol intake: never Assessment & Plan Assessment & Plan narrative: 1. Left forearm/elbow cellulitis and abscess and associated MSSA bacteremia, present on admission and improved. 2. Methamphetamine abuse, stable Reportedly currently active, but not IV use. 3. Thrombocytosis, stable Platelet count remains elevated at 592, likely secondary to his present infection. Will monitor 4. Class 1 obesity, active BMI is 34.5. Would benefit from weight reduction. Plan: -complete 14 days of IV therapy here for bacteremia, MSSA. -last day of antibiotics Wednesday. Code status Full Prophylaxis On heparin. Disposition Upon completion of IV antibiotics. Time-Based Coding :: [TOTAL MINUTES] spent with patient and on the chart (including review of chart, obtaining history, exam, reviewing outside data, placing orders, documenting exam and treatment plan, and counseling patient) on [DATE]. Quality VTE Deep Vein Thrombosis/Pulmonary Embolism Present on Admission: No
[2024-07-04 12:00] VITALS: BP 137/86; PULSE 101; RESP 15; TEMP 36.4; O2SAT 97
--- NOTE | 2024-07-04 12:47 | CM.DPNOTE ---
DCP note [employer] reviewed EMR. per pharmacist, pt actual dc date is Sunday 07/08 after 1500 dose. New PCP appt still pending from TCM group. P: dc back to car/grandmothers house when IV abx course completed. anticipate 07/08? CM team will assist with rescheduling SOC PCP appt as able. CM team will continue to follow closely for any additional DCP/CM needs. LATONYA Schaefer
[2024-07-04 17:00] VITALS: BP 151/84; PULSE 96; RESP 18; TEMP 36.3; O2SAT 98
[2024-07-04 20:00] VITALS: BP 152/84; PULSE 96; RESP 18; TEMP 35.9; O2SAT 95
[2024-07-05] MEDS: CEFAZOLIN 2 GM/100 ML PREMIX 100 ML IV ×3 (05:17→20:56)
[2024-07-05 06:22] LABS: Add Manual Diff / Slide Review NO; Basophils Absolute Auto 200 /uL (0-100); Basophils Percent Auto 1.2 % (0-2); Eosinophils Absolute Auto 800 /uL (0-450); Eosinophils Percent Auto 5.4 % (2-4); Hematocrit 46.4 % (41-53); Hemoglobin 15.3 g/dL (13.5-17.5); Lymphocytes Absolute Auto 2800 /uL (1100-4500); Lymphocytes Percent Auto 19.6 % (25-40); Mean Corpuscular Hemoglobin 29.3 PG (26-34); Monocytes Absolute Auto 1600 /uL (0-900); Neutrophils Absolute Auto 9100 /uL (1500-7000); Neutrophils Percent Auto 62.8 % (50-75); Platelet Count 540 X10^3/uL (150-400); Red Blood Cell Count 5.21 X10^6/uL (4.5-5.9); Red Cell Distribution Width 14.1 % (11.6-14.8); White Blood Cell Count 14.5 X10^3/uL (4.5-11.0)
[2024-07-05 06:38] LABS: Alanine Aminotransferase 16 IU/L (<50); Albumin 4.3 g/dL (3.5-5.0); Albumin Globulin Ratio 1.2 (1.0-2.8); Alkaline Phosphatase 36 U/L (38-126); Aspartate Aminotransferase 30 IU/L (17-59); BUN Creatinine Ratio 18.3 (6-22); Bilirubin Total 0.4 mg/dL (0.2-1.3); Blood Urea Nitrogen 19 mg/dL (9-20); Calcium 9.1 mg/dL (8.4-10.2); Carbon Dioxide 32 mmol/L (22-32); Chloride 103 mmol/L (98-107); Estimated Glomerular Filt Rate > 60 mL/min (>60); Globulin 3.6 g/dL (1.7-4.1); Glucose 102 mg/dL (70-100); HEMOLYSIS < 15 (0-50); Potassium 4.4 mmol/L (3.4-5.1); Sodium 140 mmol/L (137-145); Total Protein 7.9 g/dL (6.3-8.2)
--- NOTE | 2024-07-05 07:39 | P.PN_ITS ---
Subjective Subjective Interval history: Summary: He was admitted with left abscess and cellulitis. He would MSSA bacteremia. Initially the plan was 7 days of IV been on antibiotics and continue oral antibiotics. However on the 7th day his white count has escalated 20,000. At that point, his lower back was imaged with MR which was negative. An ultrasound of his left elbow was performed which was unremarkable. The decision was made to complete 14 days of IV cefazolin here. His last dose is Wednesday morning. S: He is doing well, no fevers. His elbow appears to be back to baseline. No other complaints. Exam Vital Signs (past 8 hours): Oxygen Delivery Method Room Air Oxygen Flow Rate 0 Narrative Exam Narrative: NAD, alert and oriented. Fluent speech. Lungs are clear, normal rate and effort. Heart is regular, no murmur gallop or rub. Abdomen is soft, non distended. Extremities are free of edema. Objective Labs 07/05/24 05:56 07/05/24 05:56 Labs: Laboratory Results - last 24 hr 07/05/24 05:56 WBC 14.5 H RBC 5.21 Hgb 15.3 Hct 46.4 MCV 89.0 MCH 29.3 MCHC 33.0 RDW 14.1 Plt Count 540 H Neut % (Auto) 62.8 Lymph % (Auto) 19.6 L [place] % (Auto) 11.0 Eos % (Auto) 5.4 H Baso % (Auto) 1.2 Neut # (Auto) 9100 H Lymph # (Auto) 2800 [place] # (Auto) 1600 H Eos # (Auto) 800 H Baso # (Auto) 200 H Sodium 140 Potassium 4.4 Chloride 103 Carbon Dioxide 32 BUN 19 Creatinine 1.04 Estimated GFR > 60 BUN/Creatinine Ratio 18.3 Glucose 102 H Calcium 9.1 Total Bilirubin 0.4 AST 30 ALT 16 Alkaline Phosphatase 36 L Total Protein 7.9 Albumin 4.3 Globulin 3.6 Albumin/Globulin Ratio 1.2 [facility] Medical History Patient denies medical problems Social History household members: spouse and family Smoking Status: Current every day smoker alcohol intake: never Assessment & Plan Assessment & Plan narrative: 1. Left forearm/elbow cellulitis and abscess and associated MSSA bacteremia, present on admission and improved. 2. Methamphetamine abuse, stable Reportedly currently active, but not IV use. 3. Thrombocytosis, stable 4. Class 1 obesity, active BMI is 34.5. Would benefit from weight reduction. Plan: -complete 14 days of IV therapy here for bacteremia, MSSA. Last dose Sat AM. -last day of antibiotics Wednesday. Code status Full Prophylaxis On heparin. Disposition Upon completion of IV antibiotics. Sat AM Time-Based Coding :: [TOTAL MINUTES] spent with patient and on the chart (including review of chart, obtaining history, exam, reviewing outside data, placing orders, documenting exam and treatment plan, and counseling patient) on [DATE]. Quality VTE Deep Vein Thrombosis/Pulmonary Embolism Present on Admission: No
[2024-07-05 08:00] VITALS: BP 126/79; PULSE 78; RESP 16; TEMP 36.6; O2SAT 98
[2024-07-05 19:00] VITALS: BP 132/79; PULSE 98; RESP 18; TEMP 36; O2SAT 98
[2024-07-05] MEDS: HEPARIN 5,000 UNIT/ML VIAL 5000 UNIT SUBCUT (20:57)
[2024-07-06] MEDS: CEFAZOLIN 2 GM/100 ML PREMIX 100 ML IV ×3 (05:30→20:09)
[2024-07-06 05:36] LABS: Add Manual Diff / Slide Review NO; Basophils Absolute Auto 200 /uL (0-100); Eosinophils Absolute Auto 600 /uL (0-450); Eosinophils Percent Auto 3.6 % (2-4); Hematocrit 46.8 % (41-53); Hemoglobin 15.4 g/dL (13.5-17.5); Lymphocytes Absolute Auto 2800 /uL (1100-4500); Lymphocytes Percent Auto 17.6 % (25-40); Mean Corpuscular Hemoglobin 29.2 PG (26-34); Mean Corpuscular Volume 88.6 fL (80-100); Monocytes Absolute Auto 1200 /uL (0-900); Monocytes Percent Auto 7.8 % (3-14); Neutrophils Absolute Auto 11200 /uL (1500-7000); Platelet Count 530 X10^3/uL (150-400); Red Blood Cell Count 5.28 X10^6/uL (4.5-5.9)
[2024-07-06 05:47] LABS: Alanine Aminotransferase 17 IU/L (<50); Albumin 4.4 g/dL (3.5-5.0); Albumin Globulin Ratio 1.1 (1.0-2.8); Alkaline Phosphatase 37 U/L (38-126); Aspartate Aminotransferase 30 IU/L (17-59); BUN Creatinine Ratio 21.4 (6-22); Bilirubin Total 0.4 mg/dL (0.2-1.3); Blood Urea Nitrogen 22 mg/dL (9-20); Calcium 9.6 mg/dL (8.4-10.2); Carbon Dioxide 30 mmol/L (22-32); Chloride 102 mmol/L (98-107); Estimated Glomerular Filt Rate > 60 mL/min (>60); Globulin 4.1 g/dL (1.7-4.1); Glucose 104 mg/dL (70-100); HEMOLYSIS < 15 (0-50); Potassium 4.5 mmol/L (3.4-5.1); Sodium 137 mmol/L (137-145); Total Protein 8.5 g/dL (6.3-8.2)
[2024-07-06 07:00] VITALS: BP 154/52; PULSE 85; RESP 18; O2SAT 97
--- NOTE | 2024-07-06 10:35 | P.PN_ITS ---
Subjective Subjective Interval history: Summary: He was admitted with left abscess and cellulitis. He would MSSA bacteremia. Initially the plan was 7 days of IV been on antibiotics and continue oral antibiotics. However on the 7th day his white count has escalated 20,000. At that point, his lower back was imaged with MR which was negative. An ultrasound of his left elbow was performed which was unremarkable. The decision was made to complete 14 days of IV cefazolin here. His last dose is Wednesday morning. S: He is doing well, no fevers. His elbow appears to be back to baseline. No other complaints. Exam Vital Signs (past 8 hours): - 07/06/24 07:00 Pulse Rate 85 Respiratory Rate 18 Blood Pressure 154/52 H Pulse Oximetry 97 Oxygen Delivery Method Room Air Oxygen Flow Rate 0 Narrative Exam Narrative: NAD, alert and oriented. Fluent speech. Lungs are clear, normal rate and effort. Heart is regular, no murmur gallop or rub. Abdomen is soft, non distended. Extremities are free of edema. Objective Labs 07/06/24 05:20 07/06/24 05:20 Labs: Laboratory Results - last 24 hr 07/06/24 05:20 WBC 16.0 H RBC 5.28 Hgb 15.4 Hct 46.8 MCV 88.6 MCH 29.2 MCHC 33.0 RDW 14.0 Plt Count 530 H Neut % (Auto) 70.0 Lymph % (Auto) 17.6 L [place] % (Auto) 7.8 Eos % (Auto) 3.6 Baso % (Auto) 1.0 Neut # (Auto) 45803 H Lymph # (Auto) 2800 [place] # (Auto) 1200 H Eos # (Auto) 600 H Baso # (Auto) 200 H Sodium 137 Potassium 4.5 Chloride 102 Carbon Dioxide 30 BUN 22 H Creatinine 1.03 Estimated GFR > 60 BUN/Creatinine Ratio 21.4 Glucose 104 H Calcium 9.6 Total Bilirubin 0.4 AST 30 ALT 17 Alkaline Phosphatase 37 L Total Protein 8.5 H Albumin 4.4 Globulin 4.1 Albumin/Globulin Ratio 1.1 [facility] Medical History Patient denies medical problems Social History household members: spouse and family Smoking Status: Current every day smoker alcohol intake: never Assessment & Plan Assessment & Plan narrative: 1. Left forearm/elbow cellulitis and abscess and associated MSSA bacteremia, present on admission and improved. 2. Methamphetamine abuse, stable Reportedly currently active, but not IV use. 3. Thrombocytosis, stable 4. Class 1 obesity, active BMI is 34.5. Would benefit from weight reduction. Plan: -complete 14 days of IV therapy here for bacteremia, MSSA. Last dose Sat AM. -last day of antibiotics Wednesday. -still slight persistent leukocytosis, but clinically no signs of worsening infection. Code status Full Prophylaxis On heparin. Disposition Upon completion of IV antibiotics. Sat AM Time-Based Coding :: [TOTAL MINUTES] spent with patient and on the chart (including review of chart, obtaining history, exam, reviewing outside data, placing orders, documenting exam and treatment plan, and counseling patient) on [DATE]. Quality VTE Deep Vein Thrombosis/Pulmonary Embolism Present on Admission: No
--- NOTE | 2024-07-06 11:01 | CM.DPC ---
DCP Cont. Reviewed EMR and team rounds for status updates. Pt continues w/plan for IV ABO's, last dose is Wednesday, then he will d/c back to RV. Monitoring for additional needs.
[2024-07-06 19:40] VITALS: BP 136/93; PULSE 105; RESP 19; TEMP 36.5; O2SAT 97
[2024-07-07 05:40] LABS: Add Manual Diff / Slide Review NO; Basophils Absolute Auto 400 /uL (0-100); Eosinophils Absolute Auto 600 /uL (0-450); Eosinophils Percent Auto 4.3 % (2-4); Hematocrit 42.7 % (41-53); Hemoglobin 14.2 g/dL (13.5-17.5); Lymphocytes Absolute Auto 2100 /uL (1100-4500); Lymphocytes Percent Auto 15.6 % (25-40); Mean Corpuscular HGB Conc 33.3 % (30-36); Mean Corpuscular Hemoglobin 29.4 PG (26-34); Mean Corpuscular Volume 88.2 fL (80-100); Monocytes Absolute Auto 1100 /uL (0-900); Monocytes Percent Auto 8.3 % (3-14); Neutrophils Absolute Auto 9100 /uL (1500-7000); Neutrophils Percent Auto 68.8 % (50-75); Platelet Count 525 X10^3/uL (150-400); Red Blood Cell Count 4.84 X10^6/uL (4.5-5.9); White Blood Cell Count 13.2 X10^3/uL (4.5-11.0)
[2024-07-07] MEDS: CEFAZOLIN 2 GM/100 ML PREMIX 100 ML IV ×3 (05:55→20:42)
[2024-07-07 05:56] LABS: BUN Creatinine Ratio 23.5 (6-22); Blood Urea Nitrogen 24 mg/dL (9-20); Carbon Dioxide 30 mmol/L (22-32); Chloride 101 mmol/L (98-107); HEMOLYSIS < 15 (0-50); Potassium 4.1 mmol/L (3.4-5.1); Sodium 139 mmol/L (137-145)
[2024-07-07 05:57] LABS: Alanine Aminotransferase 17 IU/L (<50); Albumin 4.3 g/dL (3.5-5.0); Albumin Globulin Ratio 1.2 (1.0-2.8); Alkaline Phosphatase 31 U/L (38-126); Aspartate Aminotransferase 32 IU/L (17-59); Bilirubin Total 0.4 mg/dL (0.2-1.3); Calcium 9.2 mg/dL (8.4-10.2); Estimated Glomerular Filt Rate > 60 mL/min (>60); Globulin 3.5 g/dL (1.7-4.1); Glucose 119 mg/dL (70-100); Total Protein 7.8 g/dL (6.3-8.2)
[2024-07-07 06:52] LABS: Erythrocyte Sedimentation Rate 20 MM/HR (0-15)
[2024-07-07 07:00] VITALS: BP 137/86; PULSE 85; RESP 20; TEMP 36.5; O2SAT 97
--- NOTE | 2024-07-07 10:17 | CM.DPC ---
DCP Continued: Reviewed EMR and team rounds for pt?s medical status. Plan continues to be completing IV abx course until discharge on Wednesday, 07/08. Per rounds, pt's WBC trending down. Per rounds collaboration, it was identified that OT evaluation and treatment would be beneficial for patient prior to discharge, orders entered. Plan: Anticipating discharge back to prior living when IV abx course complete on Wednesday, 07/08 after 1500 dose. CM Team will continue to follow for coordination of discharge plans. DEOVN Williamson
--- NOTE | 2024-07-07 10:45 | OT.IPNOTE ---
Ot eval and treat order received. Chart reviewed and pt seen for eval, however, pt immediately indicates full ROM of the LUE at shld, elbow, wrist, forearm, and hand without pain. No further OT needs. Eval turned into screen.
--- NOTE | 2024-07-07 12:46 | P.PN_ITS ---
Subjective Subjective Interval history: Summary: He was admitted with left abscess and cellulitis. He would MSSA bacteremia. Initially the plan was 7 days of IV been on antibiotics and continue oral antibiotics. However on the 7th day his white count has escalated 20,000. At that point, his lower back was imaged with MR which was negative. An ultrasound of his left elbow was performed which was unremarkable. The decision was made to complete 14 days of IV cefazolin here. His last dose is Wednesday morning. S: He is doing well, no fevers. His elbow appears to be back to baseline. No other complaints. Exam Vital Signs (past 8 hours): Oxygen Delivery Method Room Air Oxygen Flow Rate 0 Narrative Exam Narrative: NAD, alert and oriented. Fluent speech. Lungs are clear, normal rate and effort. Heart is regular, no murmur gallop or rub. Abdomen is soft, non distended. Extremities are free of edema. Objective Labs 07/07/24 05:02 07/07/24 05:02 Labs: Laboratory Results - last 24 hr 07/07/24 05:02 WBC 13.2 H RBC 4.84 Hgb 14.2 Hct 42.7 MCV 88.2 MCH 29.4 MCHC 33.3 RDW 14.0 Plt Count 525 H Neut % (Auto) 68.8 Lymph % (Auto) 15.6 L [place] % (Auto) 8.3 Eos % (Auto) 4.3 H Baso % (Auto) 3.0 H Neut # (Auto) 9100 H Lymph # (Auto) 2100 [place] # (Auto) 1100 H Eos # (Auto) 600 H Baso # (Auto) 400 H ESR 20 H Sodium 139 Potassium 4.1 Chloride 101 Carbon Dioxide 30 BUN 24 H Creatinine 1.02 Estimated GFR > 60 BUN/Creatinine Ratio 23.5 H Glucose 119 H Calcium 9.2 Total Bilirubin 0.4 AST 32 ALT 17 Alkaline Phosphatase 31 L C-Reactive Protein 1.0 Total Protein 7.8 Albumin 4.3 Globulin 3.5 Albumin/Globulin Ratio 1.2 COUNT INCLUDES THE [facility] Medical History Patient denies medical problems Social History household members: spouse and family Smoking Status: Current every day smoker alcohol intake: never Assessment & Plan Assessment & Plan narrative: 1. Left forearm/elbow cellulitis and abscess and associated MSSA bacteremia, present on admission and improved. 2. Methamphetamine abuse, stable Reportedly currently active, but not IV use. 3. Thrombocytosis, stable 4. Class 1 obesity, active BMI is 34.5. Would benefit from weight reduction. Plan: -complete 14 days of IV therapy here for bacteremia, MSSA. Last dose Sat AM. -last day of antibiotics Wednesday. -still slight persistent leukocytosis, improved today. but clinically no signs of worsening infection. -ESR stable on today's labs. Code status Full Prophylaxis On heparin SQ Disposition Upon completion of IV antibiotics. Sat AM Time-Based Coding :: [TOTAL MINUTES] spent with patient and on the chart (including review of chart, obtaining history, exam, reviewing outside data, placing orders, documenting exam and treatment plan, and counseling patient) on [DATE]. Quality VTE Deep Vein Thrombosis/Pulmonary Embolism Present on Admission: No
[2024-07-07 19:00] VITALS: BP 142/86; PULSE 92; RESP 18; TEMP 36.6; O2SAT 97
[2024-07-08] MEDS: CEFAZOLIN 2 GM/100 ML PREMIX 100 ML IV ×2 (05:11→12:48)
[2024-07-08 07:00] VITALS: BP 133/69; PULSE 91; RESP 18; TEMP 36.5; O2SAT 97
--- NOTE | 2024-07-08 08:07 | P.DS_ITS ---
History of Present Illness History of Present Illness Date Patient Seen: 07/08/24 Time Patient Seen: 08:07 Chief complaint: L arm infection, swelling Narrative: The patient was a 39-year-old male who presented with left elbow swelling and redness. This developed as a palumbo or pimple which is girlfriend tried to help him pump several days ago. He was since developed progressive redness, and swelling of the elbow and forearm. He presented to the emergency department and was I and D with cultures sent. The patient has significant redness and swelling of his arm from just above the elbow to longterm down the forearm. He denies any difficulty moving his hand or numbness. No fevers, or chills. He was been fatigued. He was otherwise healthy and a BMI of 35. It was a significant leukocytosis with a WBC of 27. T99.0, HR 105. Discharge Providers Provider Date of admission: 06/22/24 12:52 Discharge Date: 07/08/24 Primary care physician: Diamond Howell DO Consults: 06/22/24 11:45 Consult to [facility] - [employer] Stat Comment: [employer] Consult needed for:: Other reason (Comment) 06/22/24 14:18 Consult to [facility] - [employer] Routine Comment: [employer] Consult needed for:: Homeless 07/07/24 10:17 Consult to Occupational Therapy Evaluate & Treat Comment: Physician Instructions: Evaluate and treat Discharge provider: Bienvenido Ortiz DO Summary Hospital Course Discharge Diagnosis: 1. Left forearm/elbow cellulitis and abscess and associated MSSA bacteremia, present on admission and improved. 2. Methamphetamine abuse, stable Reportedly currently active, but not IV use. 3. Thrombocytosis, stable 4. Class 1 obesity, active BMI is 34.5. Would benefit from weight reduction. Hospital Course: This is a 39 year old male with PMH of meth use who was admitted with a left forearm abscess, with eventual finding of MSSA in his wound and 2/4 blood cultures from admission. In consultation with infectious disease from OSH patient was recommended for 2 weeks of IV cefazolin. Given no PCP or infectious disease availability in the next two weeks, and history of drug use he was recommended to complete therapy while in the hospital. TTE was unremarkable and showed no vegetations, given rapid clearance RAI was not thought to be necessary in this scenario. Originally plan was for one week of cefazolin as an inpatient with transition to oral, however given he had persistent leukocytosis it was recommended he continue the entire two weeks here in the hospital. Just before discharge WBC had improved to 13. He felt well with his left abscess resolving while in the hospital. He completed 2 weeks of cefazolin on 07/08 and was discharged home after his final dose of antibiotic. Time Spent with Patient Time spent: Greater than 30 minutes Exam Vital Signs (past 8 hours): Oxygen Delivery Method Room Air Oxygen Flow Rate 0 Narrative Exam Narrative: NAD, alert and oriented. Fluent speech. Lungs are clear, normal rate and effort. Heart is regular, no murmur gallop or rub. Abdomen is soft, non distended. Extremities are free of edema. Objective Labs 07/07/24 05:02 07/07/24 05:02 [facility] Medical History Patient denies medical problems Social History household members: spouse and family Smoking Status: Current every day smoker alcohol intake: never Discharge Plan Discharge Plan Patient Disposition: Home Provider Discharge Comment: You were admitted to the hospital with an abscess in your left arm and that bacteria entered your blood stream. You completed course of antibiotic therapy in the hospital. Please follow up with infectious disease on 07/10/2024, please check in with the clinic ([phone]) for the time of your appointment. Discharge orders & Medications Prescriptions: Continued epinephrine [EpiPen 2-Adan] 0.3 mg/0.3 mL auto-injector 0.3 mg IM Q5-15M PRN (Reason: anaphylaxis) Qty: 2 0RF Rx Instructions: do not exceed 3 doses per episode Follow up/Referrals: Diamond Howell DO [Primary Care Provider] - Other Ambulatory Orders: Referral to: (Schedule) Timeframe: 1 Week Location: Determined by Patient Ordered By: Bienvenido Ortiz Diet/Activity/Treatments Diet: Diet as Tolerated and Regular Activity: As tolerated no restrictions. Visit Report/Discharge Packet Stand Alone Forms: Patient Portal/API, Stroke Signs & Symptoms Discharge Data Primary Care Provider: Diamond Howell Quality VTE Deep Vein Thrombosis/Pulmonary Embolism Present on Admission: No
--- NOTE | 2024-07-08 13:32 | CM.DPC ---
DCP Discharge Home Per MD, pt to have his final IV Abx dose today around 1300 and then medically stable to d/c home today after that. Per RN, will take out pt's IV and provide him with discharge instructions and no concerns noted at this time. SW met bedside with pt, Sig Other sleeping on the couch, and young Dtr and explained role again and they confirm that they have gotten on the [facility] housing program list as well as [facility] and SW strongly encouraged them to reach out to both on Wednesday to follow up and not wait to hear from these agencies. Pt confirms their vehicle is in the parking lot and they plan to d/c to pt's mother's house locally and stay for a while. Pt aware of being scheduled for SOC/Establish care appointment with [facility] but has not heard yet about the scheduled date since he had remained in the hospital longer. SW confirmed pt's cell phone contact info and sent a msg to the TCM group requesting confirmation of re-scheduled PCP appointment with Arin Chavez. Plan: Patient to d/c this afternoon via own vehicle to his mother's house and f/u on housing waitlists Wednesday and SW to confirm upcoming PCP appointment Wed and let pt know via his cell phone. LATONYA Saeed
--- NOTE | 2024-07-08 15:02 | PC.NURSE ---
Addendum entered by Zahira Coates R.N. 07/08/24 16:45: TRANSPORT NURSE and pt with daughter walked out all belongings with two wheel chairs, pt's was in the bathroom cleaning up and left room with all belongings around 1635. Original Note: pt given discharge education and instructions, all questions answered, IV removed, all belongings with pt
== END 2024-07-08 16:47 | disposition home or self-care (01) | DRG 383 ==
LOC: ED 12:52 → AC 12:53
PROVIDERS: Family Medicine; Internal Medicine; Admitting Provider Hospitalist; Emergency Provider Emergency Medicine; PCP Family Medicine; Referring Provider Emergency Medicine; Visit Provider Hospitalist
DX: L02.414 Cutaneous abscess of left upper limb (principal); L03.114 Cellulitis of left upper limb; R78.81 Bacteremia; B95.61 Methicillin susceptible Staphylococcus aureus infection as the cause of diseases classified elsewhere; G89.29 Other chronic pain; M54.9 Dorsalgia, unspecified; F15.10 Other stimulant abuse, uncomplicated; D75.839 Thrombocytosis, unspecified; E66.811 Obesity, class 1; F17.200 Nicotine dependence, unspecified, uncomplicated; Z59.02 Unsheltered homelessness; Z68.34 Body mass index [BMI] 34.0-34.9, adult
CPT/HCPCS: 10060; 36415; 71045; 72149; 76882; 80048; 80053; 80202; 82550; 83605; 83690; 83735; 84145; 85007; 85025; 85027; 85610; 85651; 85730; 86140; 87040; 87070; 87075; 87077; 87147; 87154; 87186; 87205; 93005; 93010; 93306; 96365; 99284; 99285; J0690; J0696; J1642; J1644